=== PATIENT | female | born 1955 | race Caucasian/White ===

== ENCOUNTER → 2017-12-23 13:59 | Outpatient (CLI) | payer MEDICARE, OTHER, SELFPAY ==
--- NOTE | 2017-12-23 | DI.RAD.S_ITS ---
PROCEDURE: XR FOOT RT MIN 3V INDICATIONS: 62 year-old female with right foot pain. TECHNIQUE: 3 weight bearing views of the foot were acquired. COMPARISON: None. FINDINGS: Bones: No fractures or dislocations. There is normal overall bony alignment on weightbearing. Degenerative plantar calcaneal enthesophyte is present. No suspicious bony lesions. Soft tissues: No tibiotalar joint effusion. Achilles tendon appears normal. IMPRESSION: No radiographic explanation for right foot pain. Dictated by: Leonel Borden M.D. on 12/23/2017 at 15:11 Approved by: Leonel Borden M.D. on 12/23/2017 at 15:13
== END ==
PROVIDERS: PCP Internal Medicine; Visit Provider Internal Medicine
DX: M79.671 Pain in right foot (principal)
CPT/HCPCS: 73630

== ENCOUNTER → 2018-04-07 13:22 | Outpatient (CLI) | payer MEDICARE, OTHER, SELFPAY ==
--- NOTE | 2018-04-07 | DI.MRI.S_ITS ---
PROCEDURE: MR ANKLE RT WO CON INDICATIONS: RIGHT ANKLE PAIN TECHNIQUE: Noncontrast sagittal T1 spin echo and T2 fast spin echo with fat saturation, axial proton density fast spin echo and T2 fast spin echo with fat saturation, coronal T1 spin echo and T2 fast spin echo with fat saturation through the ankle/hindfoot. COMPARISON: [facility], CR, XR ANKLE 1 OR 2 VIEWS WEIGHT BEARING RIGHT, 03/23/2018, 8:37. FINDINGS: Image quality: Suboptimal due to scattered susceptibility artifact and field distortion from micro-metallic debris presumably postsurgical in nature Bones and joints: No bone marrow contusions or fractures. No hindfoot coalitions. There is mild tibiotalar degenerative spurring. No osteochondral injuries of the talar dome. No pathologic joint effusions. Medial structures: The posterior tibialis, flexor digitorum longus, and flexor hallucis longus tendons are intact. The posterior tibial neurovascular bundle appears normal within the tarsal tunnel, without extrinsic mass effect. The deep layer (anterior and posterior tibiotalar ligaments) and superficial layer (tibionavicular, tibiospring, and tibiocalcaneal ligaments) of the deltoid ligament appear normal. The spring ligament components (superomedial calcaneonavicular, medioplantar oblique calcaneonavicular, and inferoplantar longitudinal ligaments) are intact. Lateral structures: Lateral subcutaneous stranding and mild edema. The anterior talofibular, calcaneofibular, and posterior talofibular ligaments appear intact. More superiorly, the anterior and posterior tibiofibular ligaments appear intact, as is the intermalleolar ligament. The tibiofibular syndesmosis is normal in width at 2 mm or less. The peroneus longus appears intact. There is peroneus brevis tendinopathy with associated minimal tenosynovitis. Adjacent bony peroneal tubercle and retrotrochlear prominence are normal in size. The sinus tarsi demonstrates normal fatty signal, without edema, fibrosis, or cyst formation. Visualized sinus tarsi components (cervical ligament, interosseous talocalcaneal ligament, roots of the inferior extensor retinaculum) appear normal. The calcaneonavicular and calcaneocuboid components of the bifurcate ligament appear intact. The dorsal calcaneocuboid ligament appears intact. Anterior structures: The tibialis anterior, extensor hallucis longus, and extensor digitorum longus tendons appear intact. There is a small amount of fluid adjacent to the extensor digitorum longus tendon suggestive of tenosynovitis. Posterior and plantar structures: Achilles tendon is intact. Thickening of the medial band of plantar fascia with minimal adjacent soft tissue edema. IMPRESSION: Peroneus brevis tendinopathy and associated mild tenosynovitis. Lateral subcutaneous soft tissue swelling. Mild extensor digitorum longus tenosynovitis. Suboptimal evaluation due to scattered micro-metallic susceptibility artifact which partially obscures the medial hindfoot. Medial band plantar fasciitis at the calcaneal attachment. Mild tibiotalar joint degeneration. Dictated by: Wilfrido Larson M.D. on 04/07/2018 at 16:40 Approved by: Wilfrido Larson M.D. on 04/07/2018 at 16:49
== END ==
PROVIDERS: PCP Internal Medicine; Visit Provider Orthopaedic Surgery Foot and Ankle Surgery
DX: M25.571 Pain in right ankle and joints of right foot (principal); M65.871 Other synovitis and tenosynovitis, right ankle and foot; M72.2 Plantar fascial fibromatosis; M19.071 Primary osteoarthritis, right ankle and foot
CPT/HCPCS: 73721

== ENCOUNTER → 2020-11-10 08:12 | Outpatient (CLI) | payer MEDICARE, OTHER, SELFPAY ==
--- NOTE | 2020-11-10 08:16 | DI.MRI.S_ITS ---
PROCEDURE: MR LUMBAR SPINE WO CON INDICATIONS: Lesion of sciatic nerve, left lower limb TECHNIQUE: Noncontrast sagittal T1 spin echo and T2 fast echo, sagittal STIR, axial T1 and T2 fast spin echo through the lumbar spine. In cases with scoliosis, additional coronal T2 fast spin echo may be performed. COMPARISON: None. FINDINGS: Image quality: Excellent. Alignment and Curvature: There is normal bony alignment. Bone Marrow: Marrow is of normal overall signal. No acute vertebral body compression fractures. Spinal Cord: Conus medullaris terminates at the L1 level. Visualized cord demonstrates normal signal and size. Paraspinous Soft Tissues: No paravertebral masses. T12-L1: Diffuse disc bulge with no significant foraminal or central canal stenosis. L1-L2: No significant disc bulge. The foramina and central canal are patent. L2-L3: No significant disc bulge. The foramina and central canal are patent. L3-L4: No significant disc bulge. The foramina and central canal are patent. L4-L5: There is facet arthrosis and ligamentum flavum hypertrophy. No significant disc bulge. The foramina and central canal are patent. L5-S1: There is facet arthrosis and ligamentum flavum hypertrophy. No significant disc bulge. The foramina and central canal are patent. IMPRESSION: 1. Mild disc bulge at T12-L1 with no significant foraminal or central canal stenosis. 2. Facet arthrosis and ligamentum flavum hypertrophy at L4-5 and L5-S1. 3. Rightward rotoscoliosis of the thoracolumbar spine.. Dictated by: Antonino Thurston M.D. on 11/12/2020 at 8:36 Approved by: Antonino Thurston M.D. on 11/12/2020 at 8:56
== END ==
PROVIDERS: PCP Internal Medicine; Referring Provider Internal Medicine; Visit Provider Internal Medicine
DX: G57.02 Lesion of sciatic nerve, left lower limb (principal); M51.15 Intervertebral disc disorders with radiculopathy, thoracolumbar region; M47.26 Other spondylosis with radiculopathy, lumbar region; M47.27 Other spondylosis with radiculopathy, lumbosacral region; M41.85 Other forms of scoliosis, thoracolumbar region
CPT/HCPCS: 72148

== ENCOUNTER → 2021-10-07 09:25 | Outpatient (CLI) | payer MEDICARE, OTHER, SELFPAY ==
--- NOTE | 2021-10-07 09:27 | DI.RAD.S_ITS ---
PROCEDURE: XR LUMBAR SPINE MIN 4V INDICATIONS: LEFT LEG PAIN TECHNIQUE: Four views of the lumbar spine were acquired including bilateral obliques. COMPARISON: None. FINDINGS: Bones: Five nonrib-bearing vertebrae are present. Minor levoscoliosis. Normal AP alignment. No vertebral body compression fractures. No suspicious bony lesions. Soft tissues: Overlying bowel gas pattern is normal. No suspicious soft tissue calcifications. Surgical clips in the right upper quadrant. Mild abdominal aortic atherosclerotic calcification. Oblique images: No pars defects. Mild lower lumbar facet sclerosis. IMPRESSION: 1. Mild facet sclerosis and trace levoscoliosis. No other significant abnormality. Dictated by: Saima Dunn M.D. on 10/07/2021 at 10:18 Approved by: Saima Dunn M.D. on 10/07/2021 at 10:19
== END ==
PROVIDERS: PCP Internal Medicine; Referring Provider Physical Medicine & Rehabilitation; Visit Provider Physical Medicine & Rehabilitation
DX: M79.605 Pain in left leg (principal); M54.17 Radiculopathy, lumbosacral region; G95.0 Syringomyelia and syringobulbia; Z98.1 Arthrodesis status
CPT/HCPCS: 72110; 99215

== ENCOUNTER 2021-10-08 17:50 | Emergency (ER) | payer MEDICARE, OTHER, SELFPAY ==
[2021-10-08 17:52] VITALS: BP 193/84; PULSE 91; RESP 24; TEMP 36.4; O2SAT 98
--- NOTE | 2021-10-08 18:34 | ED_ITS ---
HPI - Headache <Raymond Patterson PA-C - Last Filed: 10/08/21 20:56> General Chief Complaint: Headache Stated Complaint: HEADACHE X3 DAYS RIGHT SIDE OF FACE FEELS WEAK Time Seen by Provider: 10/08/21 18:23 Mode of arrival: Ambulatory History of Present Illness HPI Narrative: 66-year-old female with past medical history hypertension, thoracic s yringomyelia presents to the ED with 3 days of intractable headache. Patient states that it has been more than 10 years since she had a headache and that this is unusual for her. Patient describes the headache to be right-sided which started from the top of her head descending down the back of her neck,, also extending down to the front of her face. Patient endorses some nausea but no vomiting. Patient endorses some flashing lights, blurry vision. Patient denies fever, chills, neck stiffness. Patient denies chest pain, endorses shortness of breath. Shortness of breath aggravated with lying down, better with sitting up straight or standing/walking. Patient also endorses bilateral leg swelling which started 3 days ago. Patient states she is currently being in the process of being worked up for some chest pain that she had some days ago. Patient was seen by her doctor this morning, given Imitrex for her headache. Patient took 1 dose of the Imitrex with no relief. Related Data Home Medications Medication Instructions Recorded Confirmed aripiprazole 30 mg tablet (Abilify) 60 mg PO DAILY 10/07/21 10/07/21 duloxetine 60 mg capsule,delayed 60 mg PO BID 10/07/21 10/07/21 release (Cymbalta) hydrocodone bitartrate 10 mg 10 mg PO Q12H 10/07/21 10/07/21 capsule, oral only, extended rel 12 hr levothyroxine 125 mcg tablet 125 mcg PO DAILY 10/07/21 10/07/21 (Synthroid) losartan 25 mg tablet 50 mg PO DAILY tab 10/07/21 10/07/21 metformin 500 mg tablet 500 mg PO DAILY 10/07/21 10/07/21 multivitamin (Daily Multi-Vitamin) 1 tab PO DAILY 10/07/21 10/07/21 oxycodone 10 mg tablet,extended mg PO 10/07/21 10/07/21 release,12 hr sitagliptin 100 mg tablet (Januvia) 100 mg PO DAILY 10/07/21 10/07/21 tizanidine 2 mg tablet 2 mg PO BID PRN tab 10/07/21 10/07/21 Previous Rx's Medication Instructions Recorded gabapentin 300 mg capsule 300 mg PO TID #90 cap 10/07/21 Allergies Allergy/AdvReac Type Severity Reaction Status Date / Time erythromycin base Allergy Severe Swelling Verified 10/07/21 11:19 of Lip/Tongue/Throat Penicillins Allergy Severe Anaphylaxis Verified 10/07/21 11:19 tetracycline Allergy Severe Anaphylaxis Verified 10/07/21 11:19 zoledronic acid Allergy Severe Anaphylaxis Verified 10/07/21 11:19 salicylic acid Allergy Intermediate Rash Verified 10/07/21 11:19 Review of Systems <Raymond Patterson PA-C - Last Filed: 10/08/21 20:56> Review of Systems ROS Unobtainable: All systems reviewed & are unremarkable except as noted in HPI and below Constitutional Constitutional: Denies chills, Denies fatigue, Denies fever(s), Denies frequent falls, Reports headache(s), Denies lethargy and Denies weakness Eyes Eyes: Reports blurry vision, Denies change in vision, Denies eye discharge, Denies irritation, Denies loss of vision and Reports seeing flashes ENT Ears, Nose, Mouth, and Throat: Denies change in voice, Denies dizziness, Reports headache(s), Denies neck pain, Denies sore throat and Denies throat swelling Cardiovascular Cardiovascular: Denies chest pain, Denies irregular heart rhythm, Denies lightheadedness, Denies palpitations, Reports dyspnea, Denies dyspnea on ex ertion and Denies orthopnea Respiratory Respiratory: Denies cough, Reports dyspnea, Denies dyspnea on exertion and Denies wheezing Gastrointestinal Gastrointestinal: Denies abdominal pain, Denies change in bowel habits, Denies diarrhea, Reports nausea and Denies vomiting Genitourinary Genitourinary: Denies hematuria, Denies flank pain, Denies urinary incontinence and Denies urinary urgency Musculoskeletal Musculoskeletal: Denies back pain, Denies muscle weakness, Denies neck pain, Denies numbness and Denies tingling Integumentary/Breasts Skin/Breast: Denies pruritus, Denies erythema, Denies rash and Denies wounds Neurologic Neurologic: Denies behavioral changes, Denies confusion, Denies dizziness, Denies frequent falls, Reports headache(s), Denies loss of vision, Denies numbness, Denies tingling and Denies weakness Psychiatric Psychiatric: Denies anxiety, Denies behavioral changes, Denies confusion, Denies depression, Denies homicidal ideation and Denies suicidal ideation Endocrine Endocrine: Denies fatigue, Denies flushing and Denies palpitations Hematologic/Lymphatic Hematologic/Lymphatic: Denies easy bruising Allergic/Immunologic Allergic/Immunologic: Denies urticaria, Denies throat swelling and Denies wheezing Patient History <Raymond Patterson PA-C - Last Filed: 10/08/21 20:56> Medical History Lumbosacral radiculopathy at L4 Post-traumatic syrinx Surgical History H/O neck surgery History of cholecystectomy History of fusion of cervical spine Family History Father Cancer Mother Heart disease Sister Heart disease Exam <Raymond Patterson PA-C - Last Filed: 10/08/21 20:56> Initial Vital Signs Initial Vital Signs: Vital Signs Temperature 97.5 F L 10/08/21 17:52 Pulse Rate 91 H 10/08/21 17:52 Respiratory Rate 24 10/08/21 17:52 Blood Pressure 193/84 H 10/08/21 17:52 Pulse Oximetry 98 10/08/21 17:52 Const General: cooperative, healthy appearing and comfortable [facility] Head: normal to inspection Ears: hearing grossly normal bilaterally Face and sinus: normal facial exam Eyes General: appearance normal, both eyes and all related structures Neck Neck: normal visual inspection Chest Chest: normal inspection of the chest Resp Effort & Inspection: normal respiratory effort Auscultation: clear to auscultation bilaterally Cardio Rate: regular rate Rhythm: regular rhythm Back/Spine/Pelvis Back: normal to inspection Other: No midline tenderness to palpation Skin General: no rashes or lesions noted Neuro General: patient alert, patient awake and patient oriented x3 Other: PERRLA, CN 1 through 12 bilaterally intact. Normal gait. Negative pronator drift, negative [id number], negative rapid alternating movements. Neurovascularly intact. Strength and sensation intact. Range of motion intact. Extrem Other: Bilateral leg swelling Psych Appearance: grossly normal Mental Status: mental status grossly normal <Aris Flood DO - Last Filed: 10/23/21 17:57> Initial Vital Signs Initial Vital Signs: Vital Signs Temperature 97.5 F L 10/08/21 17:52 Pulse Rate 91 H 10/08/21 17:52 Respiratory Rate 24 10/08/21 17:52 Blood Pressure 193/84 H 10/08/21 17:52 Pulse Oximetry 98 10/08/21 17:52 Course <Raymond Patterson PA-C - Last Filed: 10/08/21 20:56> Orders Ordered: Discontinued Medications Acetaminophen (Acetaminophen 325 Mg Tablet) 975 mg PO NOW ONE Stop: 10/08/21 18:55 Last Admin: 10/08/21 19:23 Dose: 975 mg Documented by: LUCY Diphenhydramine HCl (Diphenhydramine 50 Mg/Ml Vial) 50 mg IV NOW ONE Stop: 10/08/21 18:55 Last Admin: 10/08/21 19:22 Dose: 50 mg Documented by: LUCY Sodium Chloride (Normal Saline 0.9%) 1,000 mls @ 500 mls/hr IV BOLUS ONE Stop: 10/08/21 20:53 Last Infusion: 10/08/21 21:02 Dose: 0 mls/hr Documented by: Admin: 10/08/21 19:24 Dose: 500 mls/hr Documented by: LUCY Ketorolac Tromethamine (Ketorolac 30 Mg/Ml Vial) 15 mg IV NOW ONE Stop: 10/08/21 19:38 Last Admin: 10/08/21 19:59 Dose: 15 mg Documented by: CYNTHIA Metoclopramide HCl (Metoclopramide 10 Mg/2 Ml Inj) 10 mg IV NOW ONE Stop: 10/08/21 18:55 Last Admin: 10/08/21 19:22 Dose: 10 mg Documented by: LUCY Vital Signs Vital signs: Vital Signs - 8 hr 10/08/21 17:52 Temperature 97.5 F L Pulse Rate 91 H Respiratory Rate 24 Blood Pressure 193/84 H Pulse Oximetry 98 <Aris Flood DO - Last Filed: 10/23/21 17:57> Orders Ordered: Discontinued Medications Acetaminophen (Acetaminophen 325 Mg Tablet) 975 mg PO NOW ONE Stop: 10/08/21 18:55 Last Admin: 10/08/21 19:23 Dose: 975 mg Documented by: LUCY Diphenhydramine HCl (Diphenhydramine 50 Mg/Ml Vial) 50 mg IV NOW ONE Stop: 10/08/21 18:55 Last Admin: 10/08/21 19:22 Dose: 50 mg Documented by: LUCY Sodium Chloride (Normal Saline 0.9%) 1,000 mls @ 500 mls/hr IV BOLUS ONE Stop: 10/08/21 20:53 Last Infusion: 10/08/21 21:02 Dose: 0 mls/hr Documented by: Admin: 10/08/21 19:24 Dose: 500 mls/hr Documented by: LUCY Ketorolac Tromethamine (Ketorolac 30 Mg/Ml Vial) 15 mg IV NOW ONE Stop: 10/08/21 19:38 Last Admin: 10/08/21 19:59 Dose: 15 mg Documented by: CYNTHIA Metoclopramide HCl (Metoclopramide 10 Mg/2 Ml Inj) 10 mg IV NOW ONE Stop: 10/08/21 18:55 Last Admin: 10/08/21 19:22 Dose: 10 mg Documented by: LUCY Vital Signs Vital signs: Vital Signs - 8 hr 10/08/21 17:52 Temperature 97.5 F L Pulse Rate 91 H Respiratory Rate 24 Blood Pressure 193/84 H Pulse Oximetry 98 MDM - Headache <Raymond Patterson PA-C - Last Filed: 10/08/21 20:56> Medical Records Attestation: I reviewed the patient's medical records. Lab Data Lab results narrative: Leukocytosis of 14.2. Labs otherwise unremarkable. UA negative for UTI. Result diagrams: 10/08/21 19:15 10/08/21 19:15 Labs: Lab Results 10/08/21 10/08/21 Range/Units 19:15 19:15 WBC 14.2 H (4.5-11.0) X10^3/uL RBC 4.65 (4.0-5.2) X10^6/uL Hgb 13.4 (12.0-16.0) g/dL Hct 39.8 (36-46) % MCV 85.7 (80-100) fL MCH 28.9 (26-34) PG MCHC 33.7 (30-36) % RDW 12.8 (11.6-14.8) % Plt Count 308 (150-400) X10^3/uL Neut % (Auto) 71.5 (50-75) % Lymph % (Auto) 20.9 L (25-40) % Rush % (Auto) 4.0 (3-14) % Eos % (Auto) 3.1 (2-4) % Baso % (Auto) 0.5 (0-2) % Neut # (Auto) 39407 H (2816-8291) /uL Lymph # (Auto) 3000 (7522-2110) /uL Rush # (Auto) 600 (0-900) /uL Eos # (Auto) 400 (0-450) /uL Baso # (Auto) 100 (0-100) /uL Sodium 138 (137-145) mmol/L Potassium 4.1 (3.4-5.1) mmol/L Chloride 100 (98-107) mmol/L Carbon Dioxide 30 (22-32) mmol/L BUN 11 (7-17) mg/dL Creatinine 0.82 (0.52-1.04) mg/dL Estimated GFR > 60.0 (>60) mL/min BUN/Creatinine Ratio 13.4 (6-22) Glucose 190 H (80-110) mg/dL Calcium 9.8 (8.4-10.2) mg/dL Total Bilirubin 0.5 (0.2-1.3) mg/dL AST 32 (14-36) IU/L ALT 27 (<35) IU/L Alkaline Phosphatase 91 (38-126) U/L Troponin I 0.020 (0.01-0.034) ng/mL NT-Pro-B Natriuret Pep 26 (<125) pg/mL Total Protein 8.0 (6.3-8.2) g/dL Albumin 4.7 (3.5-5.0) g/dL Globulin 3.3 (1.7-4.1) g/dL Albumin/Globulin Ratio 1.4 (1.0-2.8) Urine Dip Bedside Urine Glucose Negative Bedside Urine Bilirubin - Negative Bedside Urine Ketone - Negative Urine Specific [place] 1.015 Bedside Urine Occult Blood - Negative Bedside Urine pH 6.0 Bedside Urine Protein - Negative Bedside Urine Urobilinogen - Negative Bedside Urine Nitrite - Negative Bedside Urine Leukocytes - Negative Esterase Imaging Data CT scan - head: Radiologist's Impression: PROCEDURE:? CT HEAD/BRAIN WO CON ? INDICATIONS:? New Headache ? TECHNIQUE:? Noncontrast 4.5 mm thick angled axial sections acquired from the foramen magnum to the vertex, with coronal and sagittal reformats.? For radiation dose reduction, the following was used:? automated exposure control, adjustment of mA and/or kV according to patient size.? ? COMPARISON:? None. ? FINDINGS:? Image quality:? Excellent.? ? CSF spaces:? Basal cisterns are patent.? No extra-axial fluid collections.? Ventricles are normal in size and shape.? ? Brain:? Mild atrophy and multifocal white matter chronic ischemic change noted.? No intracranial hemorrhage or mass effect. ? Skull and face:? Calvarium and visualized facial bones are intact, without suspicious lesions.? Incidental hyperostosis frontalis interna noted. ? Sinuses:? Visualized sinuses and mastoids are clear.? ? IMPRESSION:? ? Atrophy and mild chronic ischemic change without intracranial hemorrhage or mass effect. ? ? ? Approved by: Mario Randle M.D. on 10/08/2021 at 18:09? ECG Data Interpretation: Normal sinus rhythm, no acute ST-T changes, no axis deviation. [facility] Narrative Medical decision making narrative: 66-year-old female with past medical history hypertension, thoracic syringomyelia presents to the ED with 3 days of intractable headache. Concern for intracranial mass versus intracranial bleed versus primary headache versus new onset heart failure versus ACS. Will order labs, EKG, chest x-ray, troponin, BNP, head CT. Will treat headache with Reglan, Tylenol, Benadryl, IV fluids. Will reassess. Labs unremarkable other than leukocytosis of 14.2. No source of infection identified. Chest x-ray, UA negative. EKG, troponin, BNP normal. CT head with no acute findings. Patient responded well to treatment with pain medications. Patient states her headache and vision symptoms have resolved. ED return preca utions discussed with patient. Patient verbalized understanding. <Aris Flood, - Last Filed: 10/23/21 17:57> Lab Data Labs: Lab Results 10/08/21 10/08/21 Range/Units 19:15 19:15 WBC 14.2 H (4.5-11.0) X10^3/uL RBC 4.65 (4.0-5.2) X10^6/uL Hgb 13.4 (12.0-16.0) g/dL Hct 39.8 (36-46) % MCV 85.7 (80-100) fL MCH 28.9 (26-34) PG MCHC 33.7 (30-36) % RDW 12.8 (11.6-14.8) % Plt Count 308 (150-400) X10^3/uL Neut % (Auto) 71.5 (50-75) % Lymph % (Auto) 20.9 L (25-40) % Rush % (Auto) 4.0 (3-14) % Eos % (Auto) 3.1 (2-4) % Baso % (Auto) 0.5 (0-2) % Neut # (Auto) 07418 H (1499-3756) /uL Lymph # (Auto) 3000 (5277-9538) /uL Rush # (Auto) 600 (0-900) /uL Eos # (Auto) 400 (0-450) /uL Baso # (Auto) 100 (0-100) /uL Sodium 138 (137-145) mmol/L Potassium 4.1 (3.4-5.1) mmol/L Chloride 100 (98-107) mmol/L Carbon Dioxide 30 (22-32) mmol/L BUN 11 (7-17) mg/dL Creatinine 0.82 (0.52-1.04) mg/dL Estimated GFR > 60.0 (>60) mL/min BUN/Creatinine Ratio 13.4 (6-22) Glucose 190 H (80-110) mg/dL Calcium 9.8 (8.4-10.2) mg/dL Total Bilirubin 0.5 (0.2-1.3) mg/dL AST 32 (14-36) IU/L ALT 27 (<35) IU/L Alkaline Phosphatase 91 (38-126) U/L Troponin I 0.020 (0.01-0.034) ng/mL NT-Pro-B Natriuret Pep 26 (<125) pg/mL Total Protein 8.0 (6.3-8.2) g/dL Albumin 4.7 (3.5-5.0) g/dL Globulin 3.3 (1.7-4.1) g/dL Albumin/Globulin Ratio 1.4 (1.0-2.8) Urine Dip Bedside Urine Glucose Negative Bedside Urine Bilirubin - Negative Bedside Urine Ketone - Negative Urine Specific [place] 1.015 Bedside Urine Occult Blood - Negative Bedside Urine pH 6.0 Bedside Urine Protein - Negative Bedside Urine Urobilinogen - Negative Bedside Urine Nitrite - Negative Bedside Urine Leukocytes - Negative Esterase Discharge Plan Departure Patient Disposition: Home Clinical Impression: Headache Instructions: DI for Headache Activity Restrictions/Additional Instructions: You were evaluated in the ED today for a headache. Your CT scan, labs, urinal ysis were normal. Your symptoms responded well to the pain medications. Return to the ED if you have worsening symptoms, nausea, vomiting. Prescriptions: No Action levothyroxine [Synthroid] 125 mcg tablet 125 mcg PO DAILY 0RF Januvia 100 mg tablet 100 mg PO DAILY 0RF aripiprazole [Abilify] 30 mg tablet 60 mg PO DAILY 0RF duloxetine [Cymbalta] 60 mg capsule,delayed release(DR/EC) 60 mg PO BID 0RF metformin 500 mg tablet 500 mg PO DAILY 0RF multivitamin [Daily Multi-Vitamin] Tablet 1 tab PO DAILY 0RF oxycodone 10 mg tablet extended release 12 hr PO 0RF hydrocodone bitartrate 10 mg capsule, oral only, ER 12hr 10 mg PO Q12H 0RF losartan 25 mg tablet 50 mg PO DAILY 0RF tizanidine 2 mg tablet 2 mg PO BID PRN (Reason: muscle spasticity) 0RF gabapentin 300 mg capsule 300 mg PO TID Qty: 90 1RF Referrals: Stuart Lutz MD [Primary Care Provider] - <Aris Flood, - Last Filed: 10/23/21 17:57> Cosign ED Attending Cosfarhanature Attestation: Dr Flood Co-Sign Statement: I was available for consultation during this patient's emergency department visit. This chart is signed by myself for admin istrative purposes only. I did not have direct contact with this patient during this visit. They were seen independently by the APC.
--- NOTE | 2021-10-08 18:47 | DI.CT.S_ITS ---
PROCEDURE: CT HEAD/BRAIN WO CON INDICATIONS: New Headache TECHNIQUE: Noncontrast 4.5 mm thick angled axial sections acquired from the foramen magnum to the vertex, with coronal and sagittal reformats. For radiation dose reduction, the following was used: automated exposure control, adjustment of mA and/or kV according to patient size. COMPARISON: None. FINDINGS: Image quality: Excellent. CSF spaces: Basal cisterns are patent. No extra-axial fluid collections. Ventricles are normal in size and shape. Brain: Mild atrophy and multifocal white matter chronic ischemic change noted. No intracranial hemorrhage or mass effect. Skull and face: Calvarium and visualized facial bones are intact, without suspicious lesions. Incidental hyperostosis frontalis interna noted. Sinuses: Visualized sinuses and mastoids are clear. IMPRESSION: Atrophy and mild chronic ischemic change without intracranial hemorrhage or mass effect. Approved by: Mario Randle M.D. on 10/08/2021 at 18:09
--- NOTE | 2021-10-08 19:11 | DI.RAD.S_ITS ---
PROCEDURE: XR CHEST 2V INDICATIONS: Short of breath TECHNIQUE: 2 views of the chest were acquired. COMPARISON: [facility], CT, CT HEAD/BRAIN WO CON, 10/08/2021, 18:53. FINDINGS: Surgical changes and devices: Cholecystectomy clips are seen. Lungs and pleura: An incomplete inspiratory result is noted, causing a crowded appearance to the lung markings. No focal infiltrates are seen. No pneumothorax or significant pleural effusions are seen. Mediastinum: Mediastinal contours are normal. Heart size is normal. Bones and chest wall: No suspicious bony abnormalities. Age-appropriate bony degenerative changes are seen. Mild dextroconvex scoliotic curvature is seen. Soft tissues appear unremarkable. IMPRESSION: Limited chest plain films, without an acute abnormality identified. Dictated by: Denver Dhillon M.D. on 10/08/2021 at 19:04 Approved by: Denver Dhillon M.D. on 10/08/2021 at 19:04
[2021-10-08] MEDS: METOCLOPRAMIDE 10 MG/2 ML INJ IV (19:22)
[2021-10-08] MEDS: diphenhydrAMINE 50 MG/ML VIAL IV (19:22)
[2021-10-08] MEDS: ACETAMINOPHEN 325 MG TABLET 975 MG PO (19:23)
[2021-10-08] MEDS: SODIUM CHLORIDE 0.9% 1,000 ML 500 ML IV (19:24)
[2021-10-08] MEDS: KETOROLAC 30 MG/ML VIAL 15 MG IV (19:59)
[2021-10-08 20:00] LABS: Add Manual Diff / Slide Review NO; Basophils Absolute Auto 100 /uL (0-100); Basophils Percent Auto 0.5 % (0-2); Eosinophils Absolute Auto 400 /uL (0-450); Eosinophils Percent Auto 3.1 % (2-4); Hematocrit 39.8 % (36-46); Hemoglobin 13.4 g/dL (12.0-16.0); Lymphocytes Absolute Auto 3000 /uL (1100-4500); Lymphocytes Percent Auto 20.9 % (25-40); Mean Corpuscular HGB Conc 33.7 % (30-36); Mean Corpuscular Hemoglobin 28.9 PG (26-34); Mean Corpuscular Volume 85.7 fL (80-100); Monocytes Absolute Auto 600 /uL (0-900); Neutrophils Absolute Auto 10100 /uL (1500-7000); Neutrophils Percent Auto 71.5 % (50-75); Platelet Count 308 X10^3/uL (150-400); Red Blood Cell Count 4.65 X10^6/uL (4.0-5.2); Red Cell Distribution Width 12.8 % (11.6-14.8); White Blood Cell Count 14.2 X10^3/uL (4.5-11.0)
[2021-10-08 20:27] LABS: Alanine Aminotransferase 27 IU/L (<35); Albumin 4.7 g/dL (3.5-5.0); Albumin Globulin Ratio 1.4 (1.0-2.8); Alkaline Phosphatase 91 U/L (38-126); Aspartate Aminotransferase 32 IU/L (14-36); BUN Creatinine Ratio 13.4 (6-22); Bilirubin Total 0.5 mg/dL (0.2-1.3); Blood Urea Nitrogen 11 mg/dL (7-17); Calcium 9.8 mg/dL (8.4-10.2); Carbon Dioxide 30 mmol/L (22-32); Chloride 100 mmol/L (98-107); Estimated Glomerular Filt Rate > 60.0 mL/min (>60); Globulin 3.3 g/dL (1.7-4.1); Glucose 190 mg/dL (80-110); HEMOLYSIS < 15 (0-50); Potassium 4.1 mmol/L (3.4-5.1); Sodium 138 mmol/L (137-145)
[2021-10-08 20:37] LABS: NT-proBNP (BNP-Adult 18+) 26 pg/mL (<125)
[2021-10-08 21:00] VITALS: BP 188/84; PULSE 84; RESP 18; O2SAT 100
--- NOTE | 2021-10-08 21:04 | PC.NURSE ---
c/o pain to the right side of her head
== END 2021-10-08 21:06 | disposition home or self-care (01) ==
PROVIDERS: Emergency Provider Student in an Organized Health Care Education/Training Program; PCP Internal Medicine
DX: R51.9 Headache, unspecified (principal)
CPT/HCPCS: 36415; 70450; 71046; 80053; 81003; 83880; 84484; 85025; 93005; 96361; 96374; 96375; 99284; J1200; J1885; J2765

== ENCOUNTER → 2021-12-25 07:42 | Outpatient (CLI) | payer MEDICARE, OTHER, SELFPAY ==
--- NOTE | 2021-12-25 07:44 | DI.RAD.S_ITS ---
PROCEDURE: XR THORACIC SPINE 3V INDICATIONS: THORACIC PAIN TECHNIQUE: 3 views of the thoracic spine were acquired. COMPARISON: None. FINDINGS: Bones: No fractures or dislocations. No suspicious bony lesions. 12 pairs of ribs are noted, and appear intact where visualized. Convex right lumbar spine scoliosis. Moderate degenerative disc changes noted in the midthoracic spine. Mild degenerative disc changes noted in the mid and lower thoracic spine. Mild facet hypertrophy noted throughout the thoracic spine. Soft tissues: No paravertebral stripe thickening. Cholecystectomy clips IMPRESSION: 1. Multilevel degenerative disc disease. 2. Multilevel facet arthropathy. 3. No fracture. No acute osseous lesion. If symptoms and/or clinical suspicion for pathology persists, evaluation with MRI should be considered for further assessment. 4. Convex right scoliosis. Dictated by: Huong Liao MD, PhD on 12/25/2021 at 12:56 Approved by: Huong Liao MD, PhD on 12/25/2021 at 12:58
== END ==
PROVIDERS: PCP Internal Medicine; Referring Provider Physical Medicine & Rehabilitation; Visit Provider Physical Medicine & Rehabilitation
DX: M51.34 Other intervertebral disc degeneration, thoracic region (principal); M47.814 Spondylosis without myelopathy or radiculopathy, thoracic region; M41.84 Other forms of scoliosis, thoracic region; M54.17 Radiculopathy, lumbosacral region; G95.0 Syringomyelia and syringobulbia; Z98.1 Arthrodesis status
CPT/HCPCS: 72072; 99214

== ENCOUNTER → 2021-12-30 10:15 | Outpatient (CLI) | payer MEDICARE, OTHER, SELFPAY ==
[2021-12-30 12:04] LABS: COVID19 -Nasal RAPID Negative (Negative)
== END ==
PROVIDERS: PCP Internal Medicine; Visit Provider Physical Medicine & Rehabilitation
DX: Z20.822 Contact with and (suspected) exposure to COVID-19 (principal)
CPT/HCPCS: 87635; C9803

== ENCOUNTER 2021-12-31 09:24 | Outpatient (CLI) | payer MEDICARE, OTHER, SELFPAY ==
[2021-12-31] VITALS (9 sets, daily range): BP systolic 102–149; BP diastolic 50–83; PULSE 58–66; RESP 12–17; TEMP 36.3; O2SAT 96–100
--- NOTE | 2021-12-31 09:25 | DI.RAD.S_ITS ---
PROCEDURE: PAIN L/S TRANSFORAM INJECT ZAFAR COMPARISON: [facility], CR, XR LUMBAR SPINE MIN 4V, 10/07/2021, 9:17. INDICATIONS: SPONDYLOSIS FINDINGS: Fluoroscopic spot filming was performed to verify placement of spinal needles on both sides at the L4-L5 levels, as labeled on the films. Appropriate location of the needle tips was confirmed by injection of iodinated contrast. IMPRESSION: Intraprocedural examination demonstrating appropriate positions of the needles. Dictated by: Denver Dhillon M.D. on 12/31/2021 at 11:47 Approved by: Denver Dhillon M.D. on 12/31/2021 at 11:47
[2021-12-31] MEDS: MIDAZOLAM 2 MG/2 ML VIAL IV (11:44)
[2021-12-31] MEDS: BUPIVACAINE 0.25% (PF) VIAL 2 ML INJ (11:48)
[2021-12-31] MEDS: IOPAMIDOL 15 ML VIAL 3 ML INJ (11:48)
[2021-12-31] MEDS: BETAMETHASONE 30 MG/5 ML MDV 12 MG INJ (11:49)
[2021-12-31] MEDS: DEXAMETHASONE 10 MG/ML VIAL 20 MG INJ (11:49)
--- NOTE | 2021-12-31 12:04 | PM.PROC.IR.1 ---
Date/Time/Diagnoses Date of procedure: 12/31/21 Time of procedure: 12:04 Pre-procedure diagnosis: 1. FORAMINAL STENOSIS WITH LE SYMPTOMS Procedure Notes Procedure: 1. FLUOROSCOPICALLY GUIDED CONTRAST CONTROLLED TRANSFORAMINAL EPIDURAL STEROID INJECTION - BILATERAL L4/5 TFESI Indications: Barbara is referred by Dr. Lutz for treatment of Foraminal Stenosis with bilateral LE Symptoms Physician: Mark Lindsey Total Fluoroscopy time (seconds): 25 Total sedation minutes: 16 Complications: none Procedure in detail & Post-procedure care: FINDINGS Foraminal Nerve Root Compression secondary to disc disease and facet hypertrophy DESCRIPTION OF PROCEDURE Following review of allergy and review of potential side effects and complications, including, but not necessarily limited to, infection, allergic reaction, local tissue breakdown, stroke, temporary or permanent nerve injury, paralysis, and possible , the patient indicated that the patient understood and agreed to proceed. An informed consent document was signed by the patient, witnessed by a nurse, and placed in the patient's chart. Additionally, other treatment options including medications, modalities, and physical therapy were reviewed with the patient. After review of previous anaesthesic history and IV conscious sedation the patient was deemed safe to proceed with today?s procedure with IV conscious sedation as ASA class II designation. Safety time-out was performed to confirm patient ID, procedure to be performed and site of procedure. IV sedation was accomplished with a combination of 3mg of Versed was administered by the RN after DO order, titrated to patient comfort during the course of the procedure while the patient remained responsive to all verbal commands In the prone position following sterile prep and drape of the lumbar region, the right L4/5 posterior neuroforamen was identified fluoroscopically. The skin was anesthetized via a 25-gauge 1.5-inch needle with 1% lidocaine solution. At this point, a 25-gauge 3.5-inch spinal needle was atraumatically introduced and advanced under fluoroscopic guidance through the posterior right L4/5 neuroforamen to approximately the anterior aspect of the canal. Depth was confirmed on lateral view. Following negative aspiration, injection of approximately 1.5cc of Isovue 200 under live fluoroscopy in the AP view confirmed excellent flow along the nerve root, into the epidural space without vascular or intrathecal uptake observed Radiological data, including multiple fluoroscopic views of the lumbosacral spine, reveal a spinal needle at the right L4/5 posterior neuroforamen. Subsequent views show flow of contrast material flowing superiorly and inferiorly along the nerve root confirming epidural flow. Subsequently, a test dose of 1.5cc of 1% lidocaine solution was administered and patient was observed for two minutes for signs or symptoms of complications, including abdominal pain, shortness of breath, bilateral upper or lower extremity weakness, nausea and vomiting, prior to steroid injection. At this point, a total of 3cc or 20mg of dexamethasone and 6mg betamethasone was injected without incident. Attention was then refocused to the left L4/5 level where the identical procedure was replicated. The procedure tolerated the procedure well without signs or symptoms of complications prior to transfer to the recovery area continued monitoring without incident. The patient was then transferred to the recovery area where they were observed for an appropriate time after the injection. The patient reported a VAS score of 7 prior to the procedure and a post-procedure VAS of 0. POST OP INSTRUCTIONS The patient was provided a Pain Log to continue to record their response to the target-specific procedure prior to follow-up visit with their referring physician. Additionally, specific post-injection care instructions and a contact number to our office were provided if concerns arise regarding possible complications associated with the procedure are suspected.
== END 2021-12-31 12:28 | disposition home or self-care (01) ==
LOC: RAD 09:25
PROVIDERS: PCP Internal Medicine; Referring Provider Physical Medicine & Rehabilitation; Visit Provider Physical Medicine & Rehabilitation
DX: M48.061 Spinal stenosis, lumbar region without neurogenic claudication (principal); M51.16 Intervertebral disc disorders with radiculopathy, lumbar region
CPT/HCPCS: 64483; 99152; J0702; J1100; J2250

== ENCOUNTER 2022-05-13 09:42 | Outpatient (CLI) | payer MEDICARE, OTHER, SELFPAY ==
[2022-05-13] VITALS (8 sets, daily range): BP systolic 132–158; BP diastolic 64–86; PULSE 63–70; RESP 16–20; O2SAT 96–100
--- NOTE | 2022-05-13 09:45 | DI.RAD.S_ITS ---
PROCEDURE: PAIN L/S FACET INJ/BLK 1ST ZAFAR COMPARISON: [facility], , PAIN L/S TRANSFORAM INJECT ZAFAR, 12/31/2021, 11:48. INDICATIONS: SPONDYLOSIS FINDINGS: Fluoroscopic spot filming was performed to verify placement of spinal needles on both sides at the L4-L5 and L5-S1 levels, as labeled on the films. Appropriate location of the needle tips was confirmed by injection of iodinated contrast. IMPRESSION: Intraprocedural examination demonstrating appropriate positions of the needles. Dictated by: Denver Dhillon M.D. on 05/13/2022 at 11:12 Approved by: Denver Dhillon M.D. on 05/13/2022 at 11:12
[2022-05-13] MEDS: MIDAZOLAM 2 MG/2 ML VIAL IV (11:06)
[2022-05-13] MEDS: IOPAMIDOL 15 ML VIAL 3 ML INJ (11:09)
[2022-05-13] MEDS: LIDOCAINE 1% 20 ML 5 ML INJ (11:09)
[2022-05-13] MEDS: BETAMETHASONE 30 MG/5 ML MDV 12 MG INJ (11:10)
[2022-05-13] MEDS: BUPIVACAINE 0.5% (PF) VIAL 5 ML INJ (11:10)
--- NOTE | 2022-05-13 11:18 | P.PCN_ITS ---
Date/Time/Diagnoses Date of procedure: 05/13/22 Time of procedure: 11:18 Pre-procedure diagnosis: 1. FACET ARTHROPATHY 2. AXIAL LBP 3. MULTILEVEL DDD Post-procedure diagnosis: same Procedure Notes Procedure: 1. FLUOROSCOPICALLY GUIDED CONTRAST CONTROLLED FACET JOINT INJECTIONS BILATERAL L4/5, L5/S1 Indications: Barbara is referred by Dr. Lutz for treatment of Axial LBP Physician: Mark Lindsey Total Fluoroscopy time (seconds): 7 Total sedation minutes: 9 Complications: none Procedure in detail & Post-procedure care: FINDINGS Multilevel Facet Arthropathy with Clinically significant axial LBP DESCRIPTION OF PROCEDURE Fluoroscopically guided, contrast-controlled bilateral L4/5, L5/S1 facet joint injections. Following review of allergy and review of potential side effects and complications, including, but not necessarily limited to, infection, allergic reaction, local tissue breakdown, stroke, temporary or permanent nerve injury, paralysis, and possible , the patient indicated that the patient understood and agreed to proceed. An informed consent document was signed by the patient, witnessed by a nurse, and placed in the patient's chart. Additionally, other treatment options including medications, modalities, and physical therapy were reviewed with the patient. After review of previous anaesthesic history and IV conscious sedation the patient was deemed safe to proceed with today?s procedure with IV conscious sedation as ASA class II designation. Safety time-out was performed to confirm patient ID, procedure to be performed and site of procedure. IV sedation was accomplished with a combination of 2mg of Versed was administered by the RN after DO order, titrated to patient comfort during the course of the procedure while the patient remained responsive to all verbal commands In the prone position, following sterile prep and drape of the lumbar region, the posterior aspect of the L4/5, L5/S1 facet joints were identified fluoroscopically. The skin was anesthetized via a 25-gauge 1.5inch needle with 1% lidocaine solution into the corresponding facet joints. At this point, a 22- gauge 5-inch spinal needle was atraumatically introduced and advanced under fluoroscopic guidance into the corresponding facet joints. Following negative aspiration, injections of approximately 0.2cc of Isovue 200 confirmed interarticular placement without vascular uptake. The identical procedure was then performed at the L4/5, L5/S1 facet joints on the left. Radiological data, including multiple fluoroscopic views of the lumbosacral spine, reveal a spinal needle at the L4/5, L5/S1 facet joints bilaterally. Subsequent views show flow of contrast material both superiorly and inferiorly within the joint space without vascular or intrathecal uptake. At this point, a total of 0.5cc including a mixture of 0.25cc Marcaine and 0.25cc betamethasone was injected without complication into each of the corresponding facet joints. The patient tolerated the procedure well without signs or symptoms of complications prior to transfer to the recovery area continued monitoring without incident. The patient was then transferred to the recovery area where they were observed for an appropriate period of time after the injection. The patient reported a VAS score of 7 prior to the procedure and a post- procedure VAS of 0. POST OP INSTRUCTIONS The patient was provided a Pain Log to continue to record their response to the target-specific procedure prior to follow-up visit with their referring physician. Additionally, specific post-injection care instructions and a contact number to our office were provided if concerns arise regarding possible complications associated with the procedure are suspected.
== END 2022-05-13 11:38 | disposition home or self-care (01) ==
PROVIDERS: PCP Internal Medicine; Referring Provider Physical Medicine & Rehabilitation; Visit Provider Physical Medicine & Rehabilitation
DX: M47.816 Spondylosis without myelopathy or radiculopathy, lumbar region (principal); M47.817 Spondylosis without myelopathy or radiculopathy, lumbosacral region; M51.36 Other intervertebral disc degeneration, lumbar region; M51.37 Other intervertebral disc degeneration, lumbosacral region
CPT/HCPCS: 64493; 64494; J0702; J2250

== ENCOUNTER 2022-06-06 11:34 | Emergency (ER) | payer MEDICARE, OTHER, SELFPAY ==
[2022-06-06 11:45] VITALS: BP 140/62; PULSE 88; RESP 20; TEMP 36.4; O2SAT 98
--- NOTE | 2022-06-06 14:57 | DI.RAD.S_ITS ---
PROCEDURE: XR ANKLE LT MIN 3V INDICATIONS: medial pain s/p fall, sprain? TECHNIQUE: Three views of the ankle were acquired. COMPARISON: None. FINDINGS: Bones: No fractures or dislocations. Ankle mortise is normally aligned. No suspicious bony lesions. Prominent plantar calcaneal spur. Soft tissues: No tibiotalar joint effusion. Achilles tendon appears normal. IMPRESSION: Intact left ankle. Dictated by: Saima Dunn M.D. on 06/06/2022 at 16:02 Approved by: Saima Dunn M.D. on 06/06/2022 at 16:02
--- NOTE | 2022-06-06 14:57 | DI.RAD.S_ITS ---
PROCEDURE: XR ANKLE RT MIN 3V INDICATIONS: medial pain s/p fall, sprain? TECHNIQUE: Three views of the ankle were acquired. COMPARISON: [facility], CR, XR ANKLE 1 OR 2 VIEWS WEIGHT BEARING RIGHT, 03/23/2018, 8:37. FINDINGS: Bones: Chronic cortical irregularity of the distal tibia and fibula. Mild anterior tibiotalar spurring and spurring at both malleoli. There may be a tiny avulsion fracture along the medial malleolus. The mortise with is not well assessed given current positioning. A prominent calcaneal spur is present, symmetric with the contralateral side. Soft tissues: No tibiotalar joint effusion. Achilles tendon appears normal. Moderate medial soft tissue swelling. IMPRESSION: 1. Moderate medial soft tissue swelling with questionable nondisplaced avulsion at the tip of the medial malleolus. 2. Probable remote injury and healing deformities of the distal fibula and tibia. Dictated by: Saima Dunn M.D. on 06/06/2022 at 16:03 Approved by: Saima Dunn M.D. on 06/06/2022 at 16:09
--- NOTE | 2022-06-06 14:58 | ED_ITS ---
HPI - Fall <Sandra DESIREE LegerP - Last Filed: 06/06/22 16:43> General Chief Complaint: Fall Stated Complaint: fell thursday both legs & ankles are swollen Time Seen by Provider: 06/06/22 14:35 Source: patient Mode of arrival: Ambulatory History of Present Illness HPI Narrative: This is a 67-year-old female presents to the emergency department after she had a mechanical fall 5 days ago when her legs when out. 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 She denies any recent illness. Complains of pain to the medial aspect of her bilateral ankles, some mild swelling, states that she is able to bear weight on them bilaterally, denies any open wound. Denies any knee pain, denies any hip pain, states that she has some soft tissue bruising to the right lateral distal thigh, denies any open wound there and has full range of motion of her right hip. Patient states that she took pain medication and her pain is under control right now and she is able to ambulate without weakness. Related Data Home Medications Medication Instructions Recorded Confirmed duloxetine 60 mg capsule,delayed 60 mg PO BID 10/07/21 04/30/22 release (Cymbalta) levothyroxine 125 mcg tablet 125 mcg PO DAILY 10/07/21 04/30/22 (Synthroid) multivitamin (Daily Multi-Vitamin 1 tab PO DAILY 10/07/21 04/30/22 tablet) oxycodone 10 mg tablet,extended mg PO 10/07/21 04/30/22 release,12 hr tizanidine 2 mg tablet 2 mg PO BID PRN muscle spasticity 10/07/21 04/30/22 aripiprazole 10 mg tablet 30 mg PO DAILY 12/25/21 04/30/22 hydrocodone 10 mg-acetaminophen 1 tab PO DAILY 12/25/21 04/30/22 325 mg tablet levothyroxine 125 mcg tablet 125 mcg PO DAILY 12/25/21 04/30/22 (Synthroid) losartan 50 mg tablet 50 mg PO DAILY 12/25/21 04/30/22 methocarbamol 750 mg tablet 750 mg PO .PRN 12/25/21 04/30/22 metoprolol succinate 50 mg tab PO 12/25/21 04/30/22 tablet,extended release 24 hr sumatriptan succinate 50 mg tablet ea PO 12/25/21 04/30/22 hydrochlorothiazide 25 mg tablet 25 mg PO DAILY 04/30/22 04/30/22 metformin 500 mg tablet,extended 500 mg PO DAILY 04/30/22 04/30/22 release 24 hr oxycodone 10 mg tablet,crush 10 mg PO Q12H 04/30/22 04/30/22 resistant,extended release 12 hr sitagliptin 50 mg tablet (Januvia) 50 mg PO DAILY 04/30/22 04/30/22 Previous Rx's Medication Instructions Recorded gabapentin 600 mg tablet 600 mg PO .COMPLEX #90 tabs 04/30/22 Allergies Allergy/AdvReac Type Severity Reaction Status Date / Time erythromycin base Allergy Severe Swelling Verified 04/30/22 09:56 of Lip/Tongue/Throat Penicillins Allergy Severe Anaphylaxis Verified 04/30/22 09:56 tetracycline Allergy Severe Anaphylaxis Verified 04/30/22 09:56 zoledronic acid Allergy Severe Anaphylaxis Verified 04/30/22 09:56 salicylic acid Allergy Intermediate Rash Verified 04/30/22 09:56 Review of Systems <DEA Espinosa - Last Filed: 06/06/22 16:43> Review of Systems Narrative: Review of systems is negative for acute abnormalities unless otherwise noted in HPI Patient History <DEA Espinosa - Last Filed: 06/06/22 16:43> Medical History Depression Diabetes Facet arthropathy, lumbar Hypothyroidism Lumbosacral radiculopathy at L4 Post-traumatic syrinx Scoliosis Surgical History H/O neck surgery History of cholecystectomy History of fusion of cervical spine Family History Father Cancer Mother Heart disease Sister Heart disease Social History Smoking Status: Former smoker Smoking Status: Former smoker Substance Use Type: does not use Exam <DEA Espinosa - Last Filed: 06/06/22 16:43> Narrative Exam Narrative: Reviewed vitals signs and nursing notes. General: cooperative, comfortable, in no acute distress, well groomed HEENT: symmetrical facial expressions, moist mucous membranes, atraumatic= MSK: moves all extremities, neurovascularly intact, no weakness, normal tone, patient is ambulatory, mild edema over bilateral medial malleoli, tenderness to bilateral CFL ligaments on the medial aspect, ATFL ligaments on medial aspect. Dorsiflexion and or plantar extension intact bilaterally, PT pulses are 2+, without erythema, ecchymosis, or open wound, bilateral feet are warm to palpation, right thigh with mild tenderness over the distal quadriceps with full right knee mobility including extension and flexion, no suprapatellar effusion, tenderness to the knee ligaments. Skin: brisk capillary refill, without pallor or erythema Neuro: normal speech and cognition, A&O x3, ambulatory, clear speech Psych: mental status is grossly normal, congruent mood, normal affect, pleasant and cooperative Initial Vital Signs Initial Vital Signs: Vital Signs Temperature 97.6 F 06/06/22 11:45 Pulse Rate 88 06/06/22 11:45 Respiratory Rate 20 06/06/22 11:45 Blood Pressure 140/62 06/06/22 11:45 Pulse Oximetry 98 06/06/22 11:45 Oxygen Delivery Method 06/06/22 11:45 <Aris Flood DO - Last Filed: 06/06/22 17:23> Initial Vital Signs Initial Vital Signs: Vital Signs Temperature 97.6 F 06/06/22 11:45 Pulse Rate 88 06/06/22 11:45 Respiratory Rate 20 06/06/22 11:45 Blood Pressure 140/62 06/06/22 11:45 Pulse Oximetry 98 06/06/22 11:45 Oxygen Delivery Method 06/06/22 11:45 Course <DESIREE EspinosaP - Last Filed: 06/06/22 16:43> Orders Ordered: ED Orders 06/06/22 14:57 XR ankle LT min 3V Stat XR ankle RT min 3V Stat Vital Signs Vital signs: Vital Signs - 8 hr 06/06/22 11:45 Temperature 97.6 F Pulse Rate 88 Respiratory Rate 20 Blood Pressure 140/62 Pulse Oximetry 98 Oxygen Delivery Method Room Air <DO Jose Antonio Longo Last Filed: 06/06/22 17:23> Orders Ordered: ED Orders 06/06/22 14:57 XR ankle LT min 3V Stat XR ankle RT min 3V Stat Vital Signs Vital signs: Vital Signs - 8 hr 06/06/22 11:45 Temperature 97.6 F Pulse Rate 88 Respiratory Rate 20 Blood Pressure 140/62 Pulse Oximetry 98 Oxygen Delivery Method Room Air MDM - Fall <DEA Espinosa - Last Filed: 06/06/22 16:43> Imaging Data Extremity x-ray #2: Radiologist's Impression: Diagnostics Reports Barbara Monsalve??67??F??1955 ? Allergy/Adv: erythromycin base, Penicillins, tetracycline, zoledronic acid, salicylic acid (More??) Close Ankle X-Ray (Signed) Saima Dunn - 06/06/22 Ankle X-Ray (Signed) Saima Dunn - 06/06/22 Facet Joint Injection X-Ray (Signed) Denver Dhillon - 05/13/22 LS Transforaminal Injection (Signed) Denver Dhillon - 12/31/21 Thoracic Spine X-Ray (Signed) Huong Liao - 12/25/21 Chest X-Ray (Signed) Denver Dhillon - 10/08/[address] (Signed) Mario Randle - 10/08/21 Lumbar Spine X-Ray (Signed) Saima Dunn - 10/07/21 Lumbar Spine MRI (Signed) Antonino Thurston - 11/10/20 Outside DI 01/06/19 Outside DI 01/06/19 Outside DI 01/06/19 Ankle MRI (Signed) Wilfrido Larson - 04/07/18 Foot X-Ray (Signed) Leonel Borden - 12/23/17 Launch?[address] [address] XRay Report Signed Patient: Barbara Monsalve MR#: [id number] : 1955 Acct:[id number] Age/Sex: 67 / F Date of Service: 06/06/22 Loc: ED Accession Number: [id number] ?? Procedure: XR ankle RT min 3V Ordering Provider: Sandra Lorenzo PROCEDURE:? XR ANKLE RT MIN 3V ? INDICATIONS:? medial pain s/p fall, sprain? ? TECHNIQUE:? Three views of the ankle were acquired.? ? [facility] [place] X[facility] ANKLE 1 OR 2 VIEWS WEIGHT BEARING RIGHT, 03/23/2018, 8:37. ? FINDINGS:? ? Bones:? Chronic cortical irregularity of the distal tibia and fibula.? Mild anterior tibiotalar spurring and spurring at both malleoli.? There may be a tiny avulsion fracture along the medial malleolus.? The mortise with is not well assessed given current positioning.? A prominent calcaneal spur is present, symmetric with the contralateral side. ? Soft tissues:? No tibiotalar joint effusion.? Achilles tendon appears normal.? Moderate medial soft tissue swelling. ? ? IMPRESSION:? ? 1. Moderate medial soft tissue swelling with questionable nondisplaced avulsion at the tip of the medial malleolus. ? 2. Probable remote injury and healing deformities of the distal fibula and tibia.? Dictated by: Saima Dunn M.D. on 06/06/2022 at 16:03 ? ? Approved by: Saima Dunn M.D. on 06/06/2022 at 16:09 ? Extremity x-ray #1: Radiologist's Impression: PROCEDURE:? XR ANKLE LT MIN 3V ? INDICATIONS:? medial pain s/p fall, sprain? ? TECHNIQUE:? Three views of the ankle were acquired.? ? COMPARISON:? None. ? FINDINGS:? ? Bones:? No fractures or dislocations.? Ankle mortise is normally aligned.? No suspicious bony lesions.? Prominent plantar calcaneal spur. ? Soft tissues:? No tibiotalar joint effusion.? Achilles tendon appears normal.? ? ? IMPRESSION:? Intact left ankle. ? Dictated by: Saima Dunn M.D. on 06/06/2022 at 16:02 ? ? Approved by: Saima Dunn M.D. on 06/06/2022 at 16:02 ? [facility] Narrative Medical decision making narrative: This is a 67-year-old female who presents to the emergency department after she had a fall 5 days ago and complains of bilateral medial ankle pain with concern for swelling around her ankles and tenderness to palpation. Patient had mild tenderness over the ATFL and CFL ligaments on the medial aspect of bilateral ankles, no tenderness over bilateral malleoli on bilateral sides. Dorsiflexion plantar extension intact bilaterally, patient is ambulatory without deficit. X- ray her left ankle do not show acute fracture, she has some mild soft tissue edema without ecchymosis, wound, or erythema over these areas with normal range of motion of her above and below joints. Right ankle x-ray shows likely an avulsion fracture off the tip of the medial malleolus without displacement. Moderate medial soft tissue swelling with a probable remote injury and healing deformities of the distal fibula and tibia. Patient does have history of ankle fracture on the lateral aspect and does not have any pain over on the side currently. She has more pain on the right ankle especially when bearing weight, this is most likely fractured as she has tenderness right at this point. She was fitted in a walking boot, tolerated well, she remains neurovascularly intact, and her pain was well controlled. I encouraged her to follow-up at [facility] in 1 week or less. Patient has a walker which she will use to ambulate Patient is appropriate and amenable to discharge home. Vital signs are stable on repeat examination is unremarkable. Patient has been informed of results. Patient has been given strict return to ER precautions for any new or worsening symptoms. Patient understands to follow up closely with outpatient providers as instructed. Patient understands plan and agrees to discharge home. All questions and concerns answered at this time. Discharge Plan Departure Patient Disposition: Home Clinical Impression: Avulsion fracture of medial malleolus Qualifiers: Encounter type: initial encounter Fracture type: closed Laterality: right Qualified Code(s): S82.51XA - Displaced fracture of medial malleolus of right tibia, initial encounter for closed fracture Left ankle sprain Qualifiers: Encounter type: initial encounter Involved ligament of ankle: anterior talofibular ligament Qualified Code(s): S93.492A - Sprain of other ligament of left ankle, initial encounter Right ankle sprain Qualifiers: Encounter type: initial encounter Involved ligament of ankle: calcaneofibular ligament Qualified Code(s): S93.411A - Sprain of calcaneofibular ligament of right ankle, initial encounter Instructions: Ankle Fracture, DI for Avulsion Fracture, How to Apply an Elastic Wrap on Ankle Activity Restrictions/Additional Instructions: *You have been diagnosed with likely an avulsion fracture of the tip of the medial malleolus/ankle bone. There is a very small fracture going through the tip of that bone right below the ankle prominence. Please wear the boot while your upright and ambulating to protect the joint, please use your walker to help stay balanced. Please follow-up at [facility] for follow-up in 1 week or so. Please follow-up with Dr. Lindsey as needed, please return for worsening pain, try to elevate this frequently, take ibuprofen and your other pain medications as needed and ice may be helpful as well. It was a pleasure to meet you, I hope this heals quickly and without intervention. *What to do: *Please continue to take your regular medications as directed. [ ] New medication prescriptions sent to your pharmacy: [ ] [ ] New medication written as a paper prescription [x ] No new medications given *Please follow up with your primary care provider in 2-3 days, call for an appointment. Let them know you were seen in the Emergency Department and that we asked that you be seen for follow-up. We will electronically transmit a record of today's note if your PCP is in our system *If you do not have a primary care provider please contact [phone] to establish care with one of the [facility] primary care providers. *Return to Emergency Department if you should have any new, worsening, or concerning symptoms, such as [fever greater than 101F, chills, worsening pain, persistent vomiting or other bothersome symptoms]. Prescriptions: No Action levothyroxine [Synthroid] 125 mcg tablet 125 mcg PO DAILY duloxetine [Cymbalta] 60 mg capsule,delayed release(DR/EC) 60 mg PO BID multivitamin [Daily Multi-Vitamin] Tablet 1 tab PO DAILY oxycodone 10 mg tablet extended release 12 hr PO tizanidine 2 mg tablet 2 mg PO BID PRN (Reason: muscle spasticity) metoprolol succinate 50 mg tablet extended release 24 hr PO methocarbamol 750 mg tablet 750 mg PO .PRN losartan 50 mg tablet 50 mg PO DAILY hydrocodone-acetaminophen 10-325 mg tablet 1 tab PO DAILY aripiprazole 10 mg tablet 30 mg PO DAILY sumatriptan succinate 50 mg tablet PO Label Comments: take 1 tablet by mouth if needed AT ONSET OF HEADACHE may repeat in 2 hours IF headache PERSIST levothyroxine [Synthroid] 125 mcg tablet 125 mcg PO DAILY oxycodone 10 mg tablet,oral only,ext.rel.12 hr 10 mg PO Q12H Januvia 50 mg tablet 50 mg PO DAILY metformin 500 mg tablet extended release 24 hr 500 mg PO DAILY hydrochlorothiazide 25 mg tablet 25 mg PO DAILY gabapentin 600 mg tablet 600 mg PO .COMPLEX Qty: 90 2RF Rx Instructions: 600 mg PO 1-2 PO Tid to begin at HS and titrate to nerve pain relief; Referrals: [facility] [Provider Group] - 5-7 days Mark Lindsey DO [Physician] - Stuart Lutz MD [Primary Care Provider] - Visit Report Forms: Patient Portal/API <Aris Flood DO - Last Filed: 06/06/22 17:23> Cosign ED Attending Cosignature Attestation: Dr Flood Co-Sign Statement: I was available for consultation during this patient's emergency department visit. This chart is signed by myself for administrative purposes only. I did not have direct contact with this patient during this visit. They were seen independently by the APC.
--- NOTE | 2022-06-06 16:49 | PC.NURSE ---
pt states it feels numb but it is numb on and off.
--- NOTE | 2022-06-06 16:52 | PC.NURSE ---
pt refused discharge vitals.
== END 2022-06-06 16:51 | disposition home or self-care (01) ==
PROVIDERS: Emergency Provider Nurse Practitioner Critical Care Medicine; PCP Internal Medicine
DX: S82.51XA Displaced fracture of medial malleolus of right tibia, initial encounter for closed fracture (principal); S93.492A Sprain of other ligament of left ankle, initial encounter; S93.411A Sprain of calcaneofibular ligament of right ankle, initial encounter; W18.30XA Fall on same level, unspecified, initial encounter
CPT/HCPCS: 73610; 99283

== ENCOUNTER 2022-09-02 08:01 | Outpatient (CLI) | payer MEDICARE, OTHER, SELFPAY ==
[2022-09-02] VITALS (7 sets, daily range): BP systolic 123–185; BP diastolic 60–88; PULSE 66–69; RESP 15–18; TEMP 36.9; O2SAT 96–98
--- NOTE | 2022-09-02 08:02 | DI.RAD.S_ITS ---
PROCEDURE: PAIN L/S FACET INJ/BLK 1ST ZAFAR COMPARISON: CR, XR LUMBAR SPINE MIN 4V, 10/07/2021, 9:17. [facility], MR, MR LUMBAR SPINE WO CON, 11/10/2020, 8:23. [facility], RG, MRI L-SPINE W/WO CONTRAST, 01/06/2019, 8:40. INDICATIONS: SPONDYLOSIS FINDINGS: 6 intraoperative fluoroscopy images were obtained, demonstrating needle placement at L4, L5 and S1 bilaterally. IMPRESSION: Fluoroscopy for pain management. Dictated by: Dianne Rodriguez M.D. on 09/02/2022 at 10:40 Approved by: Dianne Rodriguez M.D. on 09/02/2022 at 10:41
[2022-09-02] MEDS: MIDAZOLAM 2 MG/2 ML VIAL IV (09:21)
[2022-09-02] MEDS: LIDOCAINE 1% 20 ML 5 ML INJ (09:29)
[2022-09-02] MEDS: IOPAMIDOL 15 ML VIAL 3 ML INJ (09:30)
[2022-09-02] MEDS: BUPIVACAINE 0.5% (PF) 30 ML VIAL 5 ML INJ (09:30)
--- NOTE | 2022-09-02 09:41 | P.PCN_ITS ---
Date/Time/Diagnoses Date of procedure: 09/02/22 Time of procedure: 09:41 Pre-procedure diagnosis: 1. FACET ARTHROPATHY Post-procedure diagnosis: same Procedure Notes Procedure: 1. BILATERAL- L4, L5 and S1 DIAGNOSTIC MB BLOCKS with LA Anesthetic Indications: Barbara is referred by Dr. Lutz for treatment of Bilateral Axial LBP. Physician: Mark Lindsey Total Fluoroscopy time (seconds): 14 Total sedation minutes: 16 Complications: none Procedure in detail & Post-procedure care: DESCRIPTION OF PROCEDURE Fluoroscopically guided, contrast-controlled bilateral L4, L5 and S1 medial branch blocks with 0.5cc of 0.5% Marcaine. Following review of allergy and review of potential side effects and complications, including, but not necessarily limited to, infection, allergic reaction, local tissue breakdown, nerve injury, paralysis, stroke and possible , the patient indicated that the patient understood and agreed to proceed. An informed consent document was signed by the patient, witnessed by a nurse, and placed in the patient's chart. After review of previous anaesthesic history and IV conscious sedation the patient was deemed safe to proceed with today's procedure with IV conscious sedation as ASA class II designation. Safety time-out was performed to confirm patient ID, procedure to be performed and site of procedure. IV sedation was accomplished with a combination of 2mg of Versed was administered by the RN after DO order, titrated to patient comfort during the course of the procedure while the patient remained responsive to all verbal commands In the prone position, following sterile prep and drape of the lumbar region, the right L4, L5 and S1 anatomical location of the medial branch of the dorsal ramus was identified fluoroscopically. Subsequently an anesthetic skin wheal using 1% lidocaine solution was initiated at each of the anatomical spots. Subsequently then a 22-gauge 5-inch spinal needle was atraumatically introduced and advanced under fluoroscopic guidance at each of the corresponding sites at the right L4, L5 and S1 MB. After negative aspiration, 0.2cc of Isovue 200 was injected, confirming placement without vascular or intrathecal uptake. Subsequently then 0.5cc of 0.5% Marcaine solution was injected at each of the corresponding sites at the right L4, L5 and S1 medial branch locations. The identical procedure was replicated on the left. The patient tolerated the procedure well without signs or symptoms of complications prior to transfer to the recovery area continued monitoring without incident. Post-procedure, the patient was monitored initiating provocative activities to measure the amount of relief from block of the facetogenic pain. The patient reported a VAS of 7 prior to the procedure and a post-procedure VAS of 1. It has been a pleasure to assist in the diagnostic and therapeutic care of your patient. POST OP INSTRUCTIONS The patient was provided with a Pain Log to complete over the next several hours and subsequent days prior to the patient's follow up with the ordering physician. If the patient has oyster bed worker relief to the solution applied, then they may be a candidate for medial branch rhizotomy. The patient is aware, was provided, once again, with a Pain Log and will follow up with the referring physician for review and clinical correlation
== END 2022-09-02 09:51 | disposition home or self-care (01) ==
LOC: RAD 08:02
PROVIDERS: PCP Internal Medicine; Referring Provider Physical Medicine & Rehabilitation; Visit Provider Physical Medicine & Rehabilitation
DX: M47.816 Spondylosis without myelopathy or radiculopathy, lumbar region (principal); M47.817 Spondylosis without myelopathy or radiculopathy, lumbosacral region
CPT/HCPCS: 64493; 64494; 99152; J2250

== ENCOUNTER 2022-12-11 09:35 | Outpatient (CLI) | payer MEDICARE, OTHER, SELFPAY ==
[2022-12-11] VITALS (17 sets, daily range): BP systolic 96–137; BP diastolic 55–86; PULSE 54–63; RESP 12–33; TEMP 35.9; O2SAT 96–100
--- NOTE | 2022-12-11 09:37 | DI.RAD.S_ITS ---
PROCEDURE: PAIN L/S MED/LAT N RFA BILAT INDICATIONS: SPONDYLOSIS COMPARISON: CR, XR LUMBAR SPINE MIN 4V, 10/07/2021, 9:17. MR, MR LUMBAR SPINE WO CON, 11/10/2020, 8:23. FINDINGS: Fluoroscopic spot filming was performed to verify placement of spinal needles at the L4, L5 and S1 level(s), as labeled on the films. Appropriate location(s) of the needle tip(s) was confirmed by injection of iodinated contrast. IMPRESSION: Fluoroscopy for needle placement. Dictated by: Dianne Rodriguez M.D. on 12/12/2022 at 7:37 Approved by: Dianne Rodriguez M.D. on 12/12/2022 at 7:38
[2022-12-11] MEDS: LIDOCAINE 1% 20 ML 5 ML INJ (10:53)
[2022-12-11] MEDS: BUPIVACAINE 0.5% (PF) 10 ML VIAL 5 ML INJ (10:53)
[2022-12-11] MEDS: MIDAZOLAM 2 MG/2 ML VIAL 4 MG IV (11:22)
--- NOTE | 2022-12-11 11:40 | P.PCN_ITS ---
Date/Time/Diagnoses Date of procedure: 12/11/22 Time of procedure: 11:40 Pre-procedure diagnosis: 1. RECALCITRANT FACET ARTHROPATHY Post-procedure diagnosis: same Procedure Notes Procedure: 1. BILATERAL L4 AND L5 MEDIAL BRANCH RADIOFREQUENCY NEUROTOMY AND S1 DORSAL RAMUS BRANCH RADIOFREQUENCY NEUROTOMY Indications: Barbara is referred by Dr. Lutz for treatment of facet arthropathy. Physician: Mark Lindsey Total Fluoroscopy time (seconds): 24 Total sedation minutes: 44 Complications: none Procedure in detail & Post-procedure care: DESCRIPTION OF PROCEDURE Bilateral L4 and L5 medial branch radiofrequency neurotomy and bilateral S1 dorsal ramus radiofrequency neurotomy under fluoroscopy with conscious sedation. The patient is well known to this clinic having undergone previous facet injections with good but temporary relief. The patient has experienced appropriate, concordant relief with previous facet and median branch blocks but the patient's pain has been recalcitrant to further conservative measures. Therefore, based upon the patient's relief and persistent symptoms, the patient is considered an appropriate candidate for facet rhizotomy. All of the patient's questions regarding the risks versus benefits of the procedure, including, but not limited to, bleeding, infection, temporary as well as lasting nerve injury, paralysis, stroke, and , as well treatment alternatives were answered to satisfaction. After obtaining informed consent, denial of pertinent drug allergies, as well as being made aware of the potential risks of bleeding, infection, spinal cord trauma, paralysis, temporary and permanent nerve damage, seizure, stroke, and possible , the patient was brought to the fluoroscopy suite and positioned prone on the fluoroscopy table. The lumbar region was prepped with Betadine and covered with a fenestrated drape in the usual sterile fashion. Appropriate monitors applied including pulse oximeter, pulse, and blood pressure for regular monitoring throughout the procedure. After review of previous anaesthesic history and IV conscious sedation the patient was deemed safe to proceed with today's procedure with IV conscious sedation as ASA class II designation. Safety time-out was performed to confirm patient ID, procedure to be performed and site of procedure. IV sedation was accomplished with a combination of 4mg of Versed administered by the RN after DO order, titrated to patient comfort during the course of the procedure while the patient remained responsive to all verbal commands. After local infiltration using 1% lidocaine, under fluoroscopic guidance, a 10- cm RF insulated needle with a 10-mm active tip was positioned parallel to the junction of the right sacral ala and the superior articulating process where the S1 dorsal ramus resides. Needle placement was confirmed with motor stimulation of .5v on the right which produced local stimulation without radicular component. The stimulation was then increased to 2v with, once again, only local multifidus stimulation without radicular component. The needle was then removed and the identical procedure was performed along the length of the right L5 medial branch with motor stimulation at .7v on the right. The identical procedure was once again performed along the length of the right L4 medial branch with motor stimulation of .5v on the right. The medial branches were then anesthetised with 0.5% Marcaine. This was then followed by two discreet lesions performed at 80 degrees Celsius for 90 seconds each. The identical procedure was repeated on the left. The patient tolerated the procedure well without signs or symptoms of complications prior to transfer to the recovery area continued monitoring without incident. The patient was then transferred to the recovery area where they were observed for an appropriate period of time after the injection. The patient reported a VAS score of 9 prior to the procedure and a post-procedure VAS of 0. POST OP INSTRUCTIONS The patient was provided a Pain Log to continue to record the patient's response to the target-specific procedure prior to the patient's follow-up visit with the referring physician. Additionally, specific post-injection care instructions and a contact number to our office were provided if concerns arise regarding possible complications associated with the procedure are suspected.
== END 2022-12-11 12:31 | disposition home or self-care (01) ==
PROVIDERS: PCP Internal Medicine; Referring Provider Physical Medicine & Rehabilitation; Visit Provider Physical Medicine & Rehabilitation
DX: M47.816 Spondylosis without myelopathy or radiculopathy, lumbar region (principal); M47.817 Spondylosis without myelopathy or radiculopathy, lumbosacral region
CPT/HCPCS: 64635; 64636; 99152; 99153; J2250

== ENCOUNTER 2023-07-16 06:52 | Outpatient (CLI) | payer MEDICARE, OTHER, SELFPAY ==
[2023-07-16] VITALS (9 sets, daily range): BP systolic 121–154; BP diastolic 55–67; PULSE 61–66; RESP 12–20; TEMP 36.4; O2SAT 95–100
--- NOTE | 2023-07-16 06:54 | DI.MRI.S_ITS ---
PROCEDURE: MR THORACIC SPINE WO CON INDICATIONS: LUMBAR RADICULOPATHY TECHNIQUE: Noncontrast sagittal T1 spine echo and T2 fast spin echo, sagittal STIR, and T2 fast spin echo through the thoracic spine. COMPARISON: [facility], RG, MRI T-SPINE W/WO CONTRAST, 01/06/2019, 8:06. FINDINGS: Image quality: Excellent. Alignment and Curvature: There is normal bony alignment. Bone Marrow: Marrow is of normal overall signal. No acute vertebral body compression fractures. 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 The central canal of the thoracic cord is prominent from the level of T3-T4 to the level of T6. The cord syrinx extends approximately from T6 through T9. It is similar in appearance to previous. Paraspinous Soft Tissues: No paravertebral masses. Miscellaneous: On axial images, central canal and foramina appear widely patent at all scanned levels. There is multilevel thoracic facet arthropathy, which is present on the right from T4-T5 through T10-T11 and on the left at T5-T6 and T7-T8 through T10-T11. IMPRESSION: 1. 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 It extends approximately from T6 through T9. 2. No canal stenosis or foraminal stenosis. 3. Multilevel thoracic facet arthropathy. Dictated by: Roberto Ashraf M.D. on 07/16/2023 at 10:45 Approved by: Roberto Ashraf M.D. on 07/16/2023 at 10:51
--- NOTE | 2023-07-16 08:45 | DI.RAD.S_ITS ---
PROCEDURE: PAIN L/S TRANSFORAM INJECT ZAFAR COMPARISON: [facility], MR, MR THORACIC SPINE WO CON, 07/16/2023, 7:34. CR, XR THORACIC SPINE 3V, 12/25/2021, 7:46. INDICATIONS: LUMBAR RADICULOPATHY FINDINGS: 8 intraoperative fluoroscopy images demonstrate needle placement at L4-L5 bilaterally. IMPRESSION: Fluoroscopy for pain management. Dictated by: Dianne Rodriguez M.D. on 07/16/2023 at 10:52 Approved by: Dianne Rodriguez M.D. on 07/16/2023 at 10:54
[2023-07-16] MEDS: MIDAZOLAM 2 MG/2 ML VIAL IV (09:09)
[2023-07-16] MEDS: BETAMETHASONE 30 MG/5 ML MDV 12 MG INJ (09:17)
[2023-07-16] MEDS: BUPIVACAINE 0.25% (PF) VIAL 2 ML INJ (09:17)
[2023-07-16] MEDS: DEXAMETHASONE 10 MG/ML VIAL 20 MG INJ (09:17)
[2023-07-16] MEDS: iopamidoL 15 ML VIAL 3 ML INJ (09:18)
[2023-07-16] MEDS: LIDOCAINE 1% 20 ML 5 ML INJ (09:18)
--- NOTE | 2023-07-16 09:36 | PM.PROC.IR.1 ---
Date/Time/Diagnoses Date of procedure: 07/16/23 Time of procedure: 09:36 Pre-procedure diagnosis: 1. FORAMINAL STENOSIS WITH LE SYMPTOMS Procedure Notes Procedure: 1. FLUOROSCOPICALLY GUIDED CONTRAST CONTROLLED TRANSFORAMINAL EPIDURAL STEROID INJECTION - BILATERAL L4/5 TFESI Indications: Barbara is referred by Dr. Lutz for treatment of Foraminal Stenosis with bilateral LE Symptoms Physician: Mark Lindsey Total Fluoroscopy time (seconds): 20 Total sedation minutes: 22 Complications: none Procedure in detail & Post-procedure care: FINDINGS Foraminal Nerve Root Compression secondary to disc disease and facet hypertrophy DESCRIPTION OF PROCEDURE Following review of allergy and review of potential side effects and complications, including, but not necessarily limited to, infection, allergic reaction, local tissue breakdown, stroke, temporary or permanent nerve injury, paralysis, and possible , the patient indicated that the patient understood and agreed to proceed. An informed consent document was signed by the patient, witnessed by a nurse, and placed in the patient's chart. Additionally, other treatment options including medications, modalities, and physical therapy were reviewed with the patient. After review of previous anaesthesic history and IV conscious sedation the patient was deemed safe to proceed with today?s procedure with IV conscious sedation as ASA class II designation. Safety time-out was performed to confirm patient ID, procedure to be performed and site of procedure. IV sedation was accomplished with a combination of 2mg of Versed was administered by the RN after DO order, titrated to patient comfort during the course of the procedure while the patient remained responsive to all verbal commands In the prone position following sterile prep and drape of the lumbar region, the right L4/5 posterior neuroforamen was identified fluoroscopically. The skin was anesthetized via a 25-gauge 1.5-inch needle with 1% lidocaine solution. At this point, a 25-gauge 3.5-inch spinal needle was atraumatically introduced and advanced under fluoroscopic guidance through the posterior right L4/5 neuroforamen to approximately the anterior aspect of the canal. Depth was confirmed on lateral view. Following negative aspiration, injection of approximately 1.5cc of Isovue 200 under live fluoroscopy in the AP view confirmed excellent flow along the nerve root, into the epidural space without vascular or intrathecal uptake observed Radiological data, including multiple fluoroscopic views of the lumbosacral spine, reveal a spinal needle at the right L4/5 posterior neuroforamen. Subsequent views show flow of contrast material flowing superiorly and inferiorly along the nerve root confirming epidural flow. Subsequently, a test dose of 1.5cc of 1% lidocaine solution was administered and patient was observed for two minutes for signs or symptoms of complications, including abdominal pain, shortness of breath, bilateral upper or lower extremity weakness, nausea and vomiting, prior to steroid injection. At this point, a total of 2cc or 10mg of dexamethasone and 6mg betamethasone was injected without incident. Attention was then refocused to the left L4/5 level where the identical procedure was replicated. The procedure tolerated the procedure well without signs or symptoms of complications prior to transfer to the recovery area continued monitoring without incident. The patient was then transferred to the recovery area where they were observed for an appropriate time after the injection. The patient reported a VAS score of 7 prior to the procedure and a post-procedure VAS of 0. POST OP INSTRUCTIONS The patient was provided a Pain Log to continue to record their response to the target-specific procedure prior to follow-up visit with their referring physician. Additionally, specific post-injection care instructions and a contact number to our office were provided if concerns arise regarding possible complications associated with the procedure are suspected.
== END 2023-07-16 09:41 | disposition home or self-care (01) ==
PROVIDERS: PCP Internal Medicine; Referring Provider Physical Medicine & Rehabilitation; Visit Provider Physical Medicine & Rehabilitation
DX: M48.061 Spinal stenosis, lumbar region without neurogenic claudication (principal); M51.16 Intervertebral disc disorders with radiculopathy, lumbar region; M47.26 Other spondylosis with radiculopathy, lumbar region; M47.814 Spondylosis without myelopathy or radiculopathy, thoracic region
CPT/HCPCS: 64483; 72146; 99152; J0702; J1100; J2250; J3490

== ENCOUNTER → 2023-08-15 09:08 | Outpatient (CLI) | payer MEDICARE, OTHER, SELFPAY ==
--- NOTE | 2023-08-15 09:09 | DI.RAD.S_ITS ---
PROCEDURE: XR CERVICAL SPINE 4V OR 5V INDICATIONS: NECK PAIN TECHNIQUE: 5 views of the cervical spine acquired. COMPARISON: None. FINDINGS: Bones: Moderate degenerative changes. Possible lower cervical vertebral body fusion. No traumatic subluxation. Oblique views, there may be some areas of neural foraminal narrowing, greater on the left in the mid and lower cervical spine. C1 on C2 alignment is maintained on odontoid view. Soft tissues: No pathologic prevertebral soft tissue swelling. IMPRESSION: Moderate degenerative changes. If there is high concern for further derangement, consider MRI evaluation. Dictated by: Gerardo Alaniz M.D. on 08/15/2023 at 10:12 Approved by: Gerardo Alaniz M.D. on 08/15/2023 at 10:14
== END ==
PROVIDERS: PCP Internal Medicine; Referring Provider Physical Medicine & Rehabilitation; Visit Provider Physical Medicine & Rehabilitation
DX: M47.812 Spondylosis without myelopathy or radiculopathy, cervical region (principal); Z98.1 Arthrodesis status
CPT/HCPCS: 72050

== ENCOUNTER → 2023-10-10 08:55 | Outpatient (CLI) | payer MEDICARE, OTHER, SELFPAY ==
--- NOTE | 2023-10-10 09:28 | DI.MRI.S_ITS ---
PROCEDURE: MR CERVICAL SPINE WO CON INDICATIONS: Cervical myeloradiculopathy TECHNIQUE: Noncontrast sagittal T1 spin echo and T2 fast spin echo, sagittal STIR, foraminal oblique sagittal T2 fast spin echo, and axial gradient echo or T2 fast spin echo through the cervical spine. COMPARISON: [facility], RG, MRI C-SPINE W/WO CONTRAST, 01/06/2019, 7:38. FINDINGS: Image quality: Excellent. Alignment and Curvature: Remote mature interbody fusion at C6-C7. There is normal bony alignment. Bone Marrow: Marrow demonstrates normal overall signal. Spinal Cord: Visualized spinal cord has normal size and signal. No cerebellar tonsillar herniation. Paraspinous Soft Tissues: No paravertebral masses. Prevertebral soft tissues are normal in thickness. C2-C3: Left uncovertebral joint hypertrophy. No canal stenosis. Right foramen patent. Moderate left foraminal narrowing. C3-C4: No canal stenosis. Mild left uncovertebral joint hypertrophy and left facet hypertrophy with moderate left foraminal narrowing and mild flattening deformity on the exiting left C4 nerve root. C4-C5: Progressive findings. Development of mild chronic disc height loss. Increase in diffuse disc bulge abutting the cord. Moderate to severe central canal stenosis. AP diameter of the central canal measures 7.7 mm on image 26 of axial series 5. There is prominent bilateral uncovertebral joint hypertrophy. There is moderate to severe right foraminal narrowing and severe left foraminal narrowing with bilateral foraminal C5 nerve root impingement. C5-C6: Progressive findings. Development of mild disc height loss. Increase in diffuse disc bulge, abutting the cord. AP diameter of the central canal measures 8.4 mm. Prominent bilateral uncovertebral joint hypertrophy. Severe bilateral foraminal narrowing with bilateral foraminal C6 nerve root impingement. . C6-C7: Mature interbody fusion. No canal stenosis or foraminal stenosis. C7-T1: No canal stenosis or foraminal stenosis IMPRESSION: 1. Remote mature interbody fusion at C6-C7 with expected findings at the surgical level. 2. Progression of findings at C4-C5 and C5-C6. 3. Central canal stenosis is moderate to severe at C4-C5 and moderate at C5-C6. 4. Significant multilevel foraminal narrowing as described above. Findings include bilateral foraminal nerve root impingement at C4-C5 and C5-C6. Dictated by: Roberto Ashraf M.D. on 10/12/2023 at 8:17 Approved by: Roberto Ashraf M.D. on 10/12/2023 at 8:52
== END ==
PROVIDERS: PCP Internal Medicine; Referring Provider Physical Medicine & Rehabilitation; Visit Provider Physical Medicine & Rehabilitation
DX: M47.22 Other spondylosis with radiculopathy, cervical region (principal); M50.121 Cervical disc disorder at C4-C5 level with radiculopathy; M48.02 Spinal stenosis, cervical region; Z98.1 Arthrodesis status
CPT/HCPCS: 72141

== ENCOUNTER 2023-11-10 07:23 | Outpatient (CLI) | payer MEDICARE, OTHER, SELFPAY ==
[2023-11-10] VITALS (8 sets, daily range): BP systolic 119–145; BP diastolic 60–78; PULSE 57–68; RESP 14–20; TEMP 36.2; O2SAT 94–99
--- NOTE | 2023-11-10 08:45 | DI.RAD.S_ITS ---
PROCEDURE: PAIN L/S TRANSFORAMINAL INJECT INDICATIONS: Left L4-5 transforaminal SUZY COMPARISON: None. FINDINGS: Fluoroscopic spot filming was performed to verify placement of spinal needles at the left L4-5 level(s), as labeled on the films. Appropriate location(s) of the needle tip(s) was confirmed by injection of iodinated contrast. IMPRESSION: Fluoro guidance was provided intraoperatively for left L4-5 transforaminal SUZY performed by ordering physician. Dictated by: Miguel Angel Sevilla M.D. on 11/10/2023 at 13:14 Approved by: Miguel Angel Sevilla M.D. on 11/10/2023 at 13:14
[2023-11-10] MEDS: MIDAZOLAM 2 MG/2 ML VIAL 1 MG IV (08:50)
[2023-11-10] MEDS: BUPIVACAINE 0.25% (PF) VIAL 2 ML INJ (08:57)
[2023-11-10] MEDS: DEXAMETHASONE 10 MG/ML VIAL INJ (08:57)
[2023-11-10] MEDS: BETAMETHASONE 30 MG/5 ML MDV 6 MG INJ (08:57)
[2023-11-10] MEDS: iopamidoL 15 ML VIAL 3 ML INJ (08:57)
--- NOTE | 2023-11-10 09:15 | P.PCN_ITS ---
Date/Time/Diagnoses Date of procedure: 11/10/23 Time of procedure: 09:15 Pre-procedure diagnosis: 1. FORAMINAL STENOSIS WITH LE SYMPTOMS Post-procedure diagnosis: same Procedure Notes Procedure: 1. FLUOROSCOPICALLY GUIDED CONTRAST CONTROLLED TRANSFORAMINAL EPIDURAL STEROID INJECTION - LEFT L4/5 Indications: Barbara is referred by Dr. Lutz for treatment of Foraminal Stenosis with Left LE Symptoms Physician: Mark Lindsey Total Fluoroscopy time (seconds): 10 Total sedation minutes: 20 Complications: none Procedure in detail & Post-procedure care: FINDINGS Foraminal Nerve Root Compression secondary to disc disease and facet hypertrophy DESCRIPTION OF PROCEDURE Following review of allergy and review of potential side effects and complications, including, but not necessarily limited to, infection, allergic reaction, local tissue breakdown, stroke, temporary or permanent nerve injury, paralysis, and possible , the patient indicated that the patient understood and agreed to proceed. An informed consent document was signed by the patient, witnessed by a nurse, and placed in the patient's chart. Additionally, other treatment options including medications, modalities, and physical therapy were reviewed with the patient. After review of previous anaesthesic history and IV conscious sedation the patient was deemed safe to proceed with today?s procedure with IV conscious sedation as ASA class II designation. Safety time-out was performed to confirm patient ID, procedure to be performed and site of procedure. IV sedation was accomplished with a combination of 1mg of Versed administered by the RN after DO order, titrated to patient comfort during the course of the procedure while the patient remained responsive to all verbal commands In the prone position following sterile prep and drape of the lumbar region, the left L4/5 posterior neuroforamen was identified fluoroscopically. The skin was anesthetized via a 25-gauge 1.5-inch needle with 1% lidocaine solution. At this point, a 25-gauge 3.5-inch spinal needle was atraumatically introduced and advanced under fluoroscopic guidance through the posterior left L4/5 neuroforamen to approximately the anterior aspect of the canal. Depth was confirmed on lateral view. Following negative aspiration, injection of approximately 1.5 cc of Isovue 200 under live fluoroscopy in the AP view confirmed excellent flow along the nerve root, into the epidural space without vascular or intrathecal uptake observed Radiological data, including multiple fluoroscopic views of the lumbosacral spine, reveal a spinal needle at the left L4/5 posterior neuroforamen. Subsequent views show flow of contrast material flowing superiorly and inferiorly along the nerve root confirming epidural flow. Subsequently, a test dose of 1.5 cc of 1% lidocaine solution was administered and patient was observed for two minutes for signs or symptoms of complications, including abdominal pain, shortness of breath, bilateral upper or lower extremity weakness, nausea and vomiting, prior to steroid injection. At this point, a total of 2cc or 10mg of dexamethasone and 6mg of betamethasone was injected without incident. The procedure tolerated the procedure well without signs or symptoms of complications prior to transfer to the recovery area continued monitoring without incident. The patient was then transferred to the recovery area where they were observed for an appropriate time after the injection. The patient reported a VAS score of 7 prior to the procedure and a post- procedure VAS of 0. POST OP INSTRUCTIONS The patient was provided a Pain Log to continue to record their response to the target-specific procedure prior to follow-up visit with their referring physician. Additionally, specific post-injection care instructions and a contact number to our office were provided if concerns arise regarding possible complications associated with the procedure are suspected.
--- NOTE | 2023-11-11 11:00 | PC.NURSE ---
Post-procedure note: Spoke with patient. She reports pain 3/10 VS 9/10 pre-injection. Questions about further injections and how often she can receive them - directed to contact clinic for further scheduling needs. No other concerns.
== END 2023-11-10 09:25 | disposition home or self-care (01) ==
PROVIDERS: PCP Internal Medicine; Referring Provider Physical Medicine & Rehabilitation; Visit Provider Physical Medicine & Rehabilitation
DX: M48.061 Spinal stenosis, lumbar region without neurogenic claudication (principal); M51.16 Intervertebral disc disorders with radiculopathy, lumbar region; M47.26 Other spondylosis with radiculopathy, lumbar region
CPT/HCPCS: 64483; 99152; J0702; J1100; J2250; J3490

== ENCOUNTER 2024-01-05 14:00 | Outpatient (CLI) | payer MEDICARE, OTHER, SELFPAY ==
[2024-01-05] VITALS (8 sets, daily range): BP systolic 130–147; BP diastolic 70–83; PULSE 86–93; RESP 13–16; TEMP 36.8; O2SAT 97–100
--- NOTE | 2024-01-05 15:30 | DI.RAD.S_ITS ---
PROCEDURE: PAIN L/S TRANSFORAMINAL INJECT INDICATIONS: Right L3-4 transforaminal SUZY COMPARISON: [facility], , PAIN L/S TRANSFORAMINAL INJECT, 11/10/2023, 8:57. FINDINGS: Fluoroscopic spot filming was performed to verify placement of spinal needles at the L3-4 level(s), as labeled on the films. Appropriate location(s) of the needle tip(s) was confirmed by injection of iodinated contrast. IMPRESSION: Fluoroscopic guidance utilized for an epidural injection at L3-4. Dictated by: David Hurt M.D. on 01/05/2024 at 17:26 Approved by: David Hurt M.D. on 01/05/2024 at 17:26
[2024-01-05] MEDS: MIDAZOLAM 2 MG/2 ML VIAL 1 MG IV (16:19)
[2024-01-05] MEDS: iopamidoL 15 ML VIAL 3 ML INJ (16:24)
[2024-01-05] MEDS: DEXAMETHASONE 10 MG/ML VIAL INJ (16:24)
[2024-01-05] MEDS: BUPIVACAINE 0.25% (PF) VIAL 2 ML INJ (16:25)
[2024-01-05] MEDS: BETAMETHASONE 30 MG/5 ML MDV 6 MG INJ (16:25)
--- NOTE | 2024-01-05 16:39 | P.PCN_ITS ---
Date/Time/Diagnoses Date of procedure: 01/05/24 Time of procedure: 16:39 Pre-procedure diagnosis: 1. FORAMINAL STENOSIS WITH LE SYMPTOMS Post-procedure diagnosis: same Procedure Notes Procedure: 1. FLUOROSCOPICALLY GUIDED CONTRAST CONTROLLED TRANSFORAMINAL EPIDURAL STEROID INJECTION - RIGHT L3/4 TFESI Indications: Barbara is referred by Dr. Lutz for treatment of Foraminal Stenosis with right LE Symptoms Physician: Mark Lindsey Total Fluoroscopy time (seconds): 15 Total sedation minutes: 15 Complications: none Procedure in detail & Post-procedure care: FINDINGS Foraminal Nerve Root Compression secondary to disc disease and facet hypertrophy DESCRIPTION OF PROCEDURE Following review of allergy and review of potential side effects and complications, including, but not necessarily limited to, infection, allergic reaction, local tissue breakdown, stroke, temporary or permanent nerve injury, paralysis, and possible , the patient indicated that the patient understood and agreed to proceed. An informed consent document was signed by the patient, witnessed by a nurse, and placed in the patient's chart. Additionally, other treatment options including medications, modalities, and physical therapy were reviewed with the patient. After review of previous anaesthesic history and IV conscious sedation the patient was deemed safe to proceed with today?s procedure with IV conscious sedation as ASA class II designation. Safety time-out was performed to confirm patient ID, procedure to be performed and site of procedure. IV sedation was accomplished with a combination of 1mg of Versed was administered by the RN after DO order, titrated to patient comfort during the course of the procedure while the patient remained responsive to all verbal commands In the prone position following sterile prep and drape of the lumbar region, the right L3/4 posterior neuroforamen was identified fluoroscopically. The skin was anesthetized via a 25-gauge 1.5-inch needle with 1% lidocaine solution. At this point, a 25-gauge 3.5-inch spinal needle was atraumatically introduced and advanced under fluoroscopic guidance through the posterior right L3/4 neuroforamen to approximately the anterior aspect of the canal. Depth was confirmed on lateral view. Following negative aspiration, injection of approximately 1.5 cc of Isovue 200 under live fluoroscopy in the AP view co nfirmed excellent flow along the nerve root, into the epidural space without vascular or intrathecal uptake observed Radiological data, including multiple fluoroscopic views of the lumbosacral spin e, reveal a spinal needle at the right L3/4 posterior neuroforamen. Subsequent views show flow of contrast material flowing superiorly and inferiorly along the nerve root confirming epidural flow. Subsequently, a test dose of 1.5 cc of 1% lidocaine solution was administered and patient was observed for two minutes for signs or symptoms of complications, including abdominal pain, shortness of breath, bilateral upper or lower extremity weakness, nausea and vomiting, prior to steroid injection. At this point, a total of 2cc or 10mg of dexamethasone and 6mg of betamethasone was injected without incident. The patient tolerated the procedure well without signs or symptoms of complications prior to transfer to the recovery area continued monitoring without incident. The patient was then transferred to the recovery area where they were observed for an appropriate time after the injection. The patient reported a VAS score of 7 prior to the procedure and a post-procedure VAS of 0. POST OP INSTRUCTIONS The patient was provided a Pain Log to continue to record their response to the target-specific procedure prior to follow-up visit with their referring p hysician. Additionally, specific post-injection care instructions and a contact number to our office were provided if concerns arise regarding possible complications associated with the procedure are suspected.
== END 2024-01-05 16:51 | disposition home or self-care (01) ==
LOC: RAD 14:02
PROVIDERS: PCP Internal Medicine; Referring Provider Physical Medicine & Rehabilitation; Visit Provider Physical Medicine & Rehabilitation
DX: M48.061 Spinal stenosis, lumbar region without neurogenic claudication (principal); M51.16 Intervertebral disc disorders with radiculopathy, lumbar region; M47.26 Other spondylosis with radiculopathy, lumbar region
CPT/HCPCS: 64483; 99152; J0702; J1100; J2250; J3490

== ENCOUNTER 2024-02-16 09:03 | Outpatient (CLI) | payer MEDICARE, OTHER, SELFPAY ==
[2024-02-16] VITALS (7 sets, daily range): BP systolic 137–160; BP diastolic 60–90; PULSE 65–72; RESP 16–19; TEMP 37.2; O2SAT 96–100
--- NOTE | 2024-02-16 10:15 | DI.RAD.S_ITS ---
PROCEDURE: PAIN L/S TRANSFORAM INJECT ZAFAR COMPARISON: [facility], XA, PAIN L/S TRANSFORAM INJECT ZAFAR, 07/16/2023, 10:17. INDICATIONS: SPONDYLOSIS FINDINGS: Fluoroscopic images demonstrate needle placement at the L3-L4 levels. Contrast was injected at these levels. IMPRESSION: Fluoroscopic images demonstrate needle placement at the L3-L4 levels. Please see procedure report for details. Dictated by: Nereida Anderson M.D. on 02/16/2024 at 17:06 Approved by: Nereida Anderson M.D. on 02/16/2024 at 17:06
[2024-02-16] MEDS: MIDAZOLAM 2 MG/2 ML VIAL IV (10:40)
[2024-02-16] MEDS: iopamidoL 15 ML VIAL 3 ML INJ (10:42)
[2024-02-16] MEDS: BUPIVACAINE 0.25% (PF) VIAL 2 ML INJ (10:42)
[2024-02-16] MEDS: BETAMETHASONE 30 MG/5 ML MDV 12 MG INJ (10:42)
[2024-02-16] MEDS: LIDOCAINE 1% 20 ML INJ (10:43)
[2024-02-16] MEDS: DEXAMETHASONE 10 MG/ML VIAL 20 MG INJ (10:43)
--- NOTE | 2024-02-16 11:03 | P.PCN_ITS ---
Date/Time/Diagnoses Date of procedure: 02/16/24 Time of procedure: 11:03 Pre-procedure diagnosis: 1. FORAMINAL STENOSIS WITH LE SYMPTOMS Post-procedure diagnosis: same Procedure Notes Procedure: 1. FLUOROSCOPICALLY GUIDED CONTRAST CONTROLLED TRANSFORAMINAL EPIDURAL STEROID INJECTION - BILATERAL L3/4 TFESI Indications: Barbara is referred by Dr. Lutz for treatment of Foraminal Stenosis with bilateral LE Symptoms Physician: Mark Lindsey Total Fluoroscopy time (seconds): 23 Total sedation minutes: 16 Complications: none Procedure in detail & Post-procedure care: FINDINGS Foraminal Nerve Root Compression secondary to disc disease and facet hypertrophy DESCRIPTION OF PROCEDURE Following review of allergy and review of potential side effects and complications, including, but not necessarily limited to, infection, allergic reaction, local tissue breakdown, stroke, temporary or permanent nerve injury, paralysis, and possible , the patient indicated that the patient understood and agreed to proceed. An informed consent document was signed by the patient, witnessed by a nurse, and placed in the patient's chart. Additionally, other treatment options including medications, modalities, and physical therapy were reviewed with the patient. After review of previous anaesthesic history and IV conscious sedation the patient was deemed safe to proceed with today?s procedure with IV conscious sedation as ASA class II designation. Safety time-out was performed to confirm patient ID, procedure to be performed and site of procedure. IV sedation was accomplished with a combination of 2mg of Versed was administered by the RN after DO order, titrated to patient comfort during the course of the procedure while the patient remained responsive to all verbal commands In the prone position following sterile prep and drape of the lumbar region, the right L3/4 posterior neuroforamen was identified fluoroscopically. The skin was anesthetized via a 25-gauge 1.5-inch needle with 1% lidocaine solution. At this point, a 25-gauge 3.5-inch spinal needle was atraumatically introduced and advanced under fluoroscopic guidance through the posterior right L3/4 neuroforamen to approximately the anterior aspect of the canal. Depth was confirmed on lateral view. Following negative aspiration, injection of approximately 1.5cc of Isovue 200 under live fluoroscopy in the AP view confirmed excellent flow along the nerve root, into the epidural space without vascular or intrathecal uptake observed Radiological data, including multiple fluoroscopic views of the lumbosacral spine, reveal a spinal needle at the right L3/4 posterior neuroforamen. Subsequent views show flow of contrast material flowing superiorly and inferiorly along the nerve root confirming epidural flow. Subsequently, a test dose of 1.5cc of 1% lidocaine solution was administered and patient was observed for two minutes for signs or symptoms of complications, including abdominal pain, shortness of breath, bilateral upper or lower extremity weakness, nausea and vomiting, prior to steroid injection. At this point, a total of 2cc or 10mg of dexamethasone and 6mg betamethasone was injected without incident. Attention was then refocused to the left L3/4 level where the identical procedure was replicated. The procedure tolerated the procedure well without signs or symptoms of complications prior to transfer to the recovery area continued monitoring without incident. The patient was then transferred to the recovery area where they were observed for an appropriate time after the injection. The patient reported a VAS score of 7 prior to the procedure and a post-procedure VAS of 0. POST OP INSTRUCTIONS The patient was provided a Pain Log to continue to record their response to the target-specific procedure prior to follow-up visit with their referring physician. Additionally, specific post-injection care instructions and a contact number to our office were provided if concerns arise regarding possible complica tions associated with the procedure are suspected.
== END 2024-02-16 11:20 | disposition home or self-care (01) ==
PROVIDERS: PCP Internal Medicine; Referring Provider Physical Medicine & Rehabilitation; Visit Provider Physical Medicine & Rehabilitation
DX: M48.061 Spinal stenosis, lumbar region without neurogenic claudication (principal); M51.16 Intervertebral disc disorders with radiculopathy, lumbar region; M47.26 Other spondylosis with radiculopathy, lumbar region
CPT/HCPCS: 64483; 99152; J0702; J1100; J2250; J3490

== ENCOUNTER → 2024-05-04 15:42 | Outpatient (CLI) | payer MEDICARE, OTHER, SELFPAY ==
--- NOTE | 2024-05-04 16:12 | DI.MRI.S_ITS ---
PROCEDURE: MR LUMBAR SPINE WO CON INDICATIONS: Lumbar radiculopathy TECHNIQUE: Noncontrast sagittal T1 spin echo and T2 fast echo, sagittal STIR, and T2 fast spin echo through the lumbar spine. In cases with scoliosis, additional coronal T2 fast spin echo may be performed. COMPARISON: [facility], MR, MR LUMBAR SPINE WO CON, 11/10/2020, 8:23. FINDINGS: Image quality: Excellent. Alignment and Curvature: There is 1-2 mm anterolisthesis of L4 on L5. Bone Marrow: There is no marrow edema. No acute vertebral body compression fractures. Spinal Cord: Conus medullaris terminates at the L1 level. Visualized cord demonstrates normal signal and size. Paraspinous Soft Tissues: No paravertebral masses. T12-L1: Disc desiccation is seen. Mild diffuse disc bulge and bilateral facet arthrosis is noted with hypertrophy of ligamentum flavum. There is mild central canal stenosis, no significant neural foraminal narrowing. L1-L2: There is disc desiccation. Bilateral facet arthrosis is seen. No significant central canal stenosis. There is mild right-sided neural foraminal narrowing. L2-L3: There is disc desiccation. Bilateral facet arthrosis is seen. No significant disc bulge, central canal stenosis or neural foraminal narrowing. L3-L4: There is disc desiccation. Broad-based disc bulge and bilateral facet arthrosis with hypertrophy of ligamentum flavum causing [id number] central canal stenosis and mild bilateral neural foraminal narrowing. L4-L5: There is disc desiccation. Broad-based disc bulge and bilateral facet arthrosis with hypertrophy of ligamentum flavum causing moderate central canal stenosis and moderate bilateral neural foraminal narrowing. Bulging disc likely contacting bilateral L4 nerve roots. L5-S1: There is mild disc desiccation. No significant disc bulge, canal stenosis or neural foraminal narrowing. Bilateral facet arthrosis is seen. IMPRESSION: 1. Degenerative disc disease throughout lumbar spine causing various degrees of central canal stenosis and bilateral neural foraminal narrowing more notably at L3-4 and L4-5 levels as above. 2. No marrow edema. No acute compression fracture. Trace anterolisthesis of L4 on L5. No gross paraspinous soft tissue abnormalities. Dictated by: Miguel Angel Sevilla M.D. on 05/05/2024 at 9:34 Approved by: Miguel Angel Sevilla M.D. on 05/05/2024 at 9:39
== END ==
PROVIDERS: PCP Internal Medicine; Referring Provider Physical Medicine & Rehabilitation; Visit Provider Physical Medicine & Rehabilitation
DX: M47.27 Other spondylosis with radiculopathy, lumbosacral region (principal); M47.26 Other spondylosis with radiculopathy, lumbar region; M51.16 Intervertebral disc disorders with radiculopathy, lumbar region; M48.061 Spinal stenosis, lumbar region without neurogenic claudication
CPT/HCPCS: 72148

== ENCOUNTER → 2024-05-12 | Outpatient (CLI) | payer MEDICARE, OTHER, SELFPAY ==
[2024-05-12] VITALS (9 sets, daily range): BP systolic 115–151; BP diastolic 55–76; PULSE 75–86; RESP 14–21; TEMP 36.2; O2SAT 94–99
--- NOTE | 2024-05-12 15:29 | DI.RAD.S_ITS ---
PROCEDURE: PAIN L/S TRANSFORAMINAL INJECT INDICATIONS: Left L3-4 and L4-5 transforaminal SUZY COMPARISON: [facility], , PAIN L/S TRANSFORAMINAL INJECT, 01/05/2024, 16:23. FINDINGS: Fluoroscopic spot filming was performed to verify placement of spinal needles at the L3-L4 and L4-L5 level(s), as labeled on the films. Appropriate location(s) of the needle tip(s) was confirmed by injection of iodinated contrast. IMPRESSION: L3-L4 and L4-L5 injections, please see operative note for full details. Dictated by: Gerardo Alaniz M.D. on 05/12/2024 at 21:37 Approved by: Gerardo Alaniz M.D. on 05/12/2024 at 21:38
[2024-05-12] MEDS: MIDAZOLAM 2 MG/2 ML VIAL IV (16:52)
[2024-05-12] MEDS: BUPIVACAINE 0.25% (PF) VIAL 2 ML INJ (16:53)
[2024-05-12] MEDS: DEXAMETHASONE 10 MG/ML VIAL 20 MG INJ (16:54)
[2024-05-12] MEDS: BETAMETHASONE 30 MG/5 ML MDV 12 MG INJ (16:54)
[2024-05-12] MEDS: iopamidoL 15 ML VIAL 3 ML INJ (16:54)
--- NOTE | 2024-05-12 17:12 | P.PCN_ITS ---
Date/Time/Diagnoses Date of procedure: 05/12/24 Time of procedure: 17:12 Pre-procedure diagnosis: 1. FORAMINAL STENOSIS WITH LE SYMPTOMS Post-procedure diagnosis: same Procedure Notes Procedure: 1. FLUOROSCOPICALLY GUIDED CONTRAST CONTROLLED TRANSFORAMINAL EPIDURAL STEROID INJECTION - LEFT L4/5 Indications: Barbara is referred by Dr. Lutz for treatment of Foraminal Stenosis with Left LE Symptoms Physician: Mark Lindsey Total Fluoroscopy time (seconds): 19 Total sedation minutes: 12 Complications: none Procedure in detail & Post-procedure care: FINDINGS Foraminal Nerve Root Compression secondary to disc disease and facet hypertrophy DESCRIPTION OF PROCEDURE Following review of allergy and review of potential side effects and complications, including, but not necessarily limited to, infection, allergic reaction, local tissue breakdown, stroke, temporary or permanent nerve injury, paralysis, and possible , the patient indicated that the patient understood and agreed to proceed. An informed consent document was signed by the patient, witnessed by a nurse, and placed in the patient's chart. Additionally, other treatment options including medications, modalities, and physical therapy were reviewed with the patient. After review of previous anaesthesic history and IV conscious sedation the patient was deemed safe to proceed with today?s procedure with IV conscious sedation as ASA class II designation. Safety time-out was performed to confirm patient ID, procedure to be performed and site of procedure. IV sedation was accomplished with a combination of 2mg of Versed administered by the RN after DO order, titrated to patient comfort during the course of the procedure while the patient remained responsive to all verbal commands In the prone position following sterile prep and drape of the lumbar region, the left L4/5 posterior neuroforamen was identified fluoroscopically. The skin was anesthetized via a 25-gauge 1.5-inch needle with 1% lidocaine solution. At this point, a 25-gauge 3.5-inch spinal needle was atraumatically introduced and advanced under fluoroscopic guidance through the posterior left L4/5 neuroforamen to approximately the anterior aspect of the canal. Depth was confirmed on lateral view. Following negative aspiration, injection of approximately 1.5 cc of Isovue 200 under live fluoroscopy in the AP view confirmed excellent flow along the nerve root, into the epidural space without vascular or intrathecal uptake observed Radiological data, including multiple fluoroscopic views of the lumbosacral spine, reveal a spinal needle at the left L4/5 posterior neuroforamen. Subsequent views show flow of contrast material flowing superiorly and inferiorly along the nerve root confirming epidural flow. Subsequently, a test dose of 1.5 cc of 1% lidocaine solution was administered and patient was observed for two minutes for signs or symptoms of complications, including abdominal pain, shortness of breath, bilateral upper or lower extremity weakness, nausea and vomiting, prior to steroid injection. At this point, a total of 2cc or 10mg of dexamethasone and 6mg of betamethasone was injected without incident. The procedure tolerated the procedure well without signs or symptoms of complications prior to transfer to the recovery area continued monitoring without incident. The patient was then transferred to the recovery area where they were observed for an appropriate time after the injection. The patient reported a VAS score of 7 prior to the procedure and a post- procedure VAS of 0. POST OP INSTRUCTIONS The patient was provided a Pain Log to continue to record their response to the target-specific procedure prior to follow-up visit with their referring physician. Additionally, specific post-injection care instructions and a contact number to our office were provided if concerns arise regarding possible complications associated with the procedure are suspected.
--- NOTE | 2024-05-12 17:13 | P.PCN_ITS ---
Date/Time/Diagnoses Date of procedure: 05/12/24 Time of procedure: 17:13 Pre-procedure diagnosis: 1. FORAMINAL STENOSIS WITH LE SYMPTOMS Post-procedure diagnosis: same Procedure Notes Procedure: 1. FLUOROSCOPICALLY GUIDED CONTRAST CONTROLLED TRANSFORAMINAL EPIDURAL STEROID INJECTION - LEFT L3/4 TFESI Indications: Barbara is referred by Dr. Lutz for treatment of Foraminal Stenosis with left LE Symptoms Physician: Mark Lindsey Total Fluoroscopy time (seconds): 19 Total sedation minutes: 12 Complications: none Procedure in detail & Post-procedure care: FINDINGS Foraminal Nerve Root Compression secondary to disc disease and facet hypertrophy DESCRIPTION OF PROCEDURE Following review of allergy and review of potential side effects and complications, including, but not necessarily limited to, infection, allergic reaction, local tissue breakdown, stroke, temporary or permanent nerve injury, paralysis, and possible , the patient indicated that the patient understood and agreed to proceed. An informed consent document was signed by the patient, witnessed by a nurse, and placed in the patient's chart. Additionally, other treatment options including medications, modalities, and physical therapy were reviewed with the patient. After review of previous anaesthesic history and IV conscious sedation the patient was deemed safe to proceed with today?s procedure with IV conscious sedation as ASA class II designation. Safety time-out was performed to confirm patient ID, procedure to be performed and site of procedure. IV sedation was accomplished with a combination of 2mg of Versed was administered by the RN after DO order, titrated to patient comfort during the course of the procedure while the patient remained responsive to all verbal commands In the prone position following sterile prep and drape of the lumbar region, the left L3/4 posterior neuroforamen was identified fluoroscopically. The skin was anesthetized via a 25-gauge 1.5-inch needle with 1% lidocaine solution. At this point, a 25-gauge 3.5-inch spinal needle was atraumatically introduced and advanced under fluoroscopic guidance through the posterior left L3/4 neuroforamen to approximately the anterior aspect of the canal. Depth was confirmed on lateral view. Following negative aspiration, injection of approximately 1.5 cc of Isovue 200 under live fluoroscopy in the AP view confir med excellent flow along the nerve root, into the epidural space without vascular or intrathecal uptake observed Radiological data, including multiple fluoroscopic views of the lumbosacral spine, reveal a spinal needle at the left L3/4 posterior neuroforamen. Subsequent views show flow of contrast material flowing superiorly and inferiorly along the nerve root confirming epidural flow. Subsequently, a test dose of 1.5cc of 1% lidocaine solution was administered and patient was observed for two minutes for signs or symptoms of complications, including abdominal pain, shortness of breath, bilateral upper or lower extremity weakness, nausea and vomiting, prior to steroid injection. At this point, a total of 2cc or 10mg of dexamethasone and 6mg betamethasone was injected without incident. The patient tolerated the procedure well without signs or symptoms of complications prior to transfer to the recovery area continued monitoring without incident. The patient was then transferred to the recovery area where they were observed for an appropriate time after the injection. The patient reported a VAS score of 7 prior to the procedure and a post-procedure VAS of 0. POST OP INSTRUCTIONS The patient was provided a Pain Log to continue to record their response to the target-specific procedure prior to follow-up visit with their referring physician. Additionally, specific post-injection care instructions and a contact number to our office were provided if concerns arise regarding possible complications associated with the procedure are suspected.
== END ==
PROVIDERS: PCP Internal Medicine; Referring Provider Physical Medicine & Rehabilitation; Visit Provider Physical Medicine & Rehabilitation
DX: M48.061 Spinal stenosis, lumbar region without neurogenic claudication (principal); M51.16 Intervertebral disc disorders with radiculopathy, lumbar region; M47.26 Other spondylosis with radiculopathy, lumbar region
CPT/HCPCS: 64483; 64484; 99152; J0702; J1100; J2250; J3490

== ENCOUNTER 2024-07-19 12:13 | Outpatient (CLI) | payer MEDICARE, OTHER, SELFPAY ==
[2024-07-19] VITALS (9 sets, daily range): BP systolic 115–173; BP diastolic 56–74; PULSE 56–65; RESP 16–18; TEMP 36.5; O2SAT 98–100
--- NOTE | 2024-07-19 12:14 | DI.RAD.S_ITS ---
PROCEDURE: PAIN L/S TRANSFORAMINAL INJECT INDICATIONS: Right L4/5 and L3/4 TFESI COMPARISON: [facility], , PAIN L/S TRANSFORAMINAL INJECT, 05/12/2024, 16:54. FINDINGS/IMPRESSION: Fluoroscopic spot filming was performed to verify placement of spinal needles at the L3-4, L4-5 level(s), as labeled on the films. Appropriate location(s) of the needle tip(s) was confirmed by injection of iodinated contrast. Dictated by: Steffanie Zazueta M.D. on 07/20/2024 at 22:45 Approved by: Steffanie Zazueta M.D. on 07/20/2024 at 22:45
[2024-07-19] MEDS: MIDAZOLAM 2 MG/2 ML VIAL IV (13:33)
[2024-07-19] MEDS: BUPIVACAINE 0.25% (PF) VIAL 2 ML INJ (13:38)
[2024-07-19] MEDS: DEXAMETHASONE 10 MG/ML VIAL 20 MG INJ (13:39)
[2024-07-19] MEDS: BETAMETHASONE 30 MG/5 ML MDV 12 MG INJ (13:39)
[2024-07-19] MEDS: iopamidoL 15 ML VIAL 3 ML INJ (13:40)
[2024-07-19] MEDS: LIDOCAINE 1% 20 ML 5 ML INJ (13:41)
--- NOTE | 2024-07-19 14:00 | P.PCN_ITS ---
Date/Time/Diagnoses Date of procedure: 07/19/24 Time of procedure: 14:00 Pre-procedure diagnosis: 1. FORAMINAL STENOSIS WITH LE SYMPTOMS Post-procedure diagnosis: same Procedure Notes Procedure: 1. FLUOROSCOPICALLY GUIDED CONTRAST CONTROLLED TRANSFORAMINAL EPIDURAL STEROID INJECTION - RIGHT L4/5 TFESI Indications: Barbara is referred by Dr. Lutz for treatment of Foraminal Stenosis with Right LE Symptoms Physician: Mark Lindsey Total Fluoroscopy time (seconds): 12 Total sedation minutes: 19 Complications: none Procedure in detail & Post-procedure care: FINDINGS Foraminal Nerve Root Compression secondary to disc disease and facet hypertrophy DESCRIPTION OF PROCEDURE Following review of allergy and review of potential side effects and complications, including, but not necessarily limited to, infection, allergic reaction, local tissue breakdown, stroke, temporary or permanent nerve injury, paralysis, and possible , the patient indicated that the patient understood and agreed to proceed. An informed consent document was signed by the patient, witnessed by a nurse, and placed in the patient's chart. Additionally, other treatment options including medications, modalities, and physical therapy were reviewed with the patient. After review of previous anaesthesic history and IV conscious sedation the patient was deemed safe to proceed with today?s procedure with IV conscious sedation as ASA class II designation. Safety time-out was performed to confirm patient ID, procedure to be performed and site of procedure. IV sedation was accomplished with a combination of 2mg of Versed was administered by the RN after DO order, titrated to patient comfort during the course of the procedure while the patient remained responsive to all verbal commands In the prone position following sterile prep and drape of the lumbar region, the right L4/5 posterior neuroforamen was identified fluoroscopically. The skin was anesthetized via a 25-gauge 1.5-inch needle with 1% lidocaine solution. At this point, a 25-gauge 3.5-inch spinal needle was atraumatically introduced and advanced under fluoroscopic guidance through the posterior right L4/5 neuroforamen to approximately the anterior aspect of the canal. Depth was confirmed on lateral view. Following negative aspiration, injection of approximately 1.5cc of Isovue 200 under live fluoroscopy in the AP view confirmed excellent flow along the nerve root, into the epidural space without vascular or intrathecal uptake observed Radiological data, including multiple fluoroscopic views of the lumbosacral sp ine, reveal a spinal needle at the right L4/5 posterior neuroforamen. Subsequent views show flow of contrast material flowing superiorly and inferiorly along the nerve root confirming epidural flow. Subsequently, a test dose of 1.5 cc of 1% lidocaine solution was administered and patient was observed for two minutes for signs or symptoms of complications, including abdominal pain, shortness of breath, bilateral upper or lower extremity weakness, nausea and vomiting, prior to steroid injection. At this point, a total of 2cc or 10mg of dexamethasone and 6mg of betamethasone was injected without incident. The procedure tolerated the procedure well without signs or symptoms of complications prior to transfer to the recovery area continued monitoring without incident. The patient was then transferred to the recovery area where they were observed for an appropriate time after the injection. The patient reported a VAS score of 7 prior to the procedure and a post- procedure VAS of 0. POST OP INSTRUCTIONS The patient was provided a Pain Log to continue to record their response to the target-specific procedure prior to follow-up visit with their referring physician. Additionally, specific post-injection care instructions and a contact number to our office were provided if concerns arise regarding possible complications associated with the procedure are suspected.
--- NOTE | 2024-07-19 14:01 | P.PCN_ITS ---
Date/Time/Diagnoses Date of procedure: 07/19/24 Time of procedure: 14:01 Pre-procedure diagnosis: 1. FORAMINAL STENOSIS WITH LE SYMPTOMS Post-procedure diagnosis: same Procedure Notes Procedure: 1. FLUOROSCOPICALLY GUIDED CONTRAST CONTROLLED TRANSFORAMINAL EPIDURAL STEROID INJECTION - RIGHT L3/4 TFESI Indications: Barbara is referred by Dr. Lutz for treatment of Foraminal Stenosis with right LE Symptoms Physician: Mark Lindsey Total Fluoroscopy time (seconds): 12 Total sedation minutes: 19 Complications: none Procedure in detail & Post-procedure care: FINDINGS Foraminal Nerve Root Compression secondary to disc disease and facet hypertrophy DESCRIPTION OF PROCEDURE Following review of allergy and review of potential side effects and complications, including, but not necessarily limited to, infection, allergic reaction, local tissue breakdown, stroke, temporary or permanent nerve injury, paralysis, and possible , the patient indicated that the patient understood and agreed to proceed. An informed consent document was signed by the patient, witnessed by a nurse, and placed in the patient's chart. Additionally, other treatment options including medications, modalities, and physical therapy were reviewed with the patient. After review of previous anaesthesic history and IV conscious sedation the patient was deemed safe to proceed with today?s procedure with IV conscious sedation as ASA class II designation. Safety time-out was performed to confirm patient ID, procedure to be performed and site of procedure. IV sedation was accomplished with a combination of 2mg of Versed was administered by the RN after DO order, titrated to patient comfort during the course of the procedure while the patient remained responsive to all verbal commands In the prone position following sterile prep and drape of the lumbar region, the right L3/4 posterior neuroforamen was identified fluoroscopically. The skin was anesthetized via a 25-gauge 1.5-inch needle with 1% lidocaine solution. At this point, a 25-gauge 3.5-inch spinal needle was atraumatically introduced and advanced under fluoroscopic guidance through the posterior right L3/4 neuroforamen to approximately the anterior aspect of the canal. Depth was confirmed on lateral view. Following negative aspiration, injection of approximately 1.5 cc of Isovue 200 under live fluoroscopy in the AP view c onfirmed excellent flow along the nerve root, into the epidural space without vascular or intrathecal uptake observed Radiological data, including multiple fluoroscopic views of the lumbosacral spi ne, reveal a spinal needle at the right L3/4 posterior neuroforamen. Subsequent views show flow of contrast material flowing superiorly and inferiorly along the nerve root confirming epidural flow. Subsequently, a test dose of 1.5 cc of 1% lidocaine solution was administered and patient was observed for two minutes for signs or symptoms of complications, including abdominal pain, shortness of breath, bilateral upper or lower extremity weakness, nausea and vomiting, prior to steroid injection. At this point, a total of 2cc or 10mg of dexamethasone and 6mg of betamethasone was injected without incident. The patient tolerated the procedure well without signs or symptoms of complications prior to transfer to the recovery area continued monitoring without incident. The patient was then transferred to the recovery area where they were observed for an appropriate time after the injection. The patient reported a VAS score of 7 prior to the procedure and a post-procedure VAS of 0. POST OP INSTRUCTIONS The patient was provided a Pain Log to continue to record their response to the target-specific procedure prior to follow-up visit with their referring physician. Additionally, specific post-injection care instructions and a contact number to our office were provided if concerns arise regarding possible complications associated with the procedure are suspected.
== END 2024-07-19 14:09 | disposition home or self-care (01) ==
PROVIDERS: PCP Internal Medicine; Referring Provider Physical Medicine & Rehabilitation; Visit Provider Physical Medicine & Rehabilitation
DX: M48.061 Spinal stenosis, lumbar region without neurogenic claudication (principal); M51.16 Intervertebral disc disorders with radiculopathy, lumbar region; M47.26 Other spondylosis with radiculopathy, lumbar region
CPT/HCPCS: 64483; 64484; 99152; J0702; J1100; J2250; J3490

== ENCOUNTER 2024-07-30 08:33 | Emergency (ER) | payer MEDICARE, OTHER, SELFPAY ==
[2024-07-30] VITALS (9 sets, daily range): BP systolic 138–156; BP diastolic 65–97; PULSE 61–70; RESP 18; TEMP 36.7; O2SAT 95–98; BMI 35.9
--- NOTE | 2024-07-30 08:35 | ED.GENADULT ---
HPI - General Adult General Chief complaint: Extremity Injury, Lower Stated complaint: 4ft Fall t-8, R Foot Injury/Pain Time Seen by Provider: 07/30/24 08:35 History of Present Illness HPI narrative: 69-year-old woman with a history of paroxysmal atrial fibrillation anticoagulated on warfarin, prior TIA, hypertension, diabetes, hyperlipidemia chronic pain management on 40-60 mg of oxycodone and occasional ibuprofen daily stepped out of an elevator and fell 4 ft landing on her heels, this occurred 8 days ago. The elevator is in their home. She was initially evaluated at [facility] with x-rays done of the foot and ankle that did not reveal any fractures or other bony injury, she does have some bruising that is healing appropriately over both lower extremities. She is still unable to bear weight on the right foot. She had a home walking boot that she has been using. She comes in for further evaluation and has no other musculoskeletal complaints today Related Data Home Medications Medication Instructions Recorded Confirmed levothyroxine 125 mcg tablet 125 mcg PO DAILY 10/07/21 05/25/24 (Synthroid) multivitamin (Daily Multi-Vitamin 1 tab PO DAILY 10/07/21 05/25/24 tablet) aripiprazole 10 mg tablet 30 mg PO DAILY 12/25/21 05/25/24 hydrocodone 10 mg-acetaminophen 1 tab PO DAILY 12/25/21 05/25/24 325 mg tablet losartan 50 mg tablet 50 mg PO DAILY 12/25/21 05/25/24 metoprolol succinate 50 mg tab PO 12/25/21 05/25/24 tablet,extended release 24 hr sumatriptan succinate 50 mg tablet ea PO 12/25/21 05/25/24 metformin 500 mg tablet,extended 500 mg PO DAILY 04/30/22 05/25/24 release 24 hr aspirin 81 mg tablet,delayed 81 mg PO DAILY 08/20/22 05/25/24 release atorvastatin 80 mg tablet 80 mg PO BEDTIME 08/20/22 05/25/24 clopidogrel 75 mg tablet 75 mg PO DAILY 08/20/22 05/25/24 empagliflozin 25 mg tablet 25 mg PO DAILY 08/20/22 05/25/24 (Jardiance) sitagliptin phosphate 100 mg 100 mg PO DAILY 08/20/22 05/25/24 tablet (Januvia) albuterol sulfate 90 mcg/actuation 2 puff inhalation .PRN 11/26/22 05/25/24 aerosol inhaler (ProAir HFA) amlodipine 2.5 mg tablet 2.5 mg PO DAILY 11/26/22 05/25/24 hydrochlorothiazide 25 mg tablet 25 mg PO DAILY 11/26/22 05/25/24 ondansetron HCl 4 mg tablet 4 mg PO PRN nausea and vomiting 11/26/22 05/25/24 oxycodone 10 mg tablet,crush tab PO 11/26/22 05/25/24 resistant,extended release 12 hr diclofenac sodium 1 % topical gel 2 g topical QID 02/25/23 05/25/24 rizatriptan 5 mg disintegrating 5 mg PO ONCE 02/25/23 05/25/24 tablet naloxone 4 mg/actuation nasal spray spray intranasal 11/23/23 05/25/24 duloxetine 60 mg capsule,delayed 60 mg PO DAILY 02/10/24 05/25/24 release (Cymbalta) Previous Rx's Medication Instructions Recorded pramipexole 0.5 mg tablet (Mirapex) 0.5 mg PO BEDTIME #30 tabs 06/10/23 gabapentin 600 mg tablet 600 mg PO .COMPLEX #270 tabs 02/10/24 cyclobenzaprine 5 mg tablet 10 mg (2 x 5 mg) PO BEDTIME #60 05/06/24 tabs alprazolam 0.5 mg tablet (Xanax) 0.5 mg PO .COMPLEX PRN Pre MRI or 07/18/24 Procedure #5 tabs Allergies Allergy/AdvReac Type Severity Reaction Status Date / Time erythromycin base Allergy Severe Swelling Verified 05/25/24 13:09 of Lip/Tongue/Throat Penicillins Allergy Severe Anaphylaxis Verified 05/25/24 13:09 phenytoin [From Dilantin] Allergy Severe Rash Verified 05/25/24 13:09 tetracycline Allergy Severe Anaphylaxis Verified 05/25/24 13:09 zoledronic acid Allergy Severe Anaphylaxis Verified 05/25/24 13:09 salicylic acid Allergy Intermediate Rash Verified 05/25/24 13:09 Review of Systems Review of Systems Narrative: Pertinent positive and negative findings as per HPI Patient History Medical History Cervical radiculopathy Atrial fibrillation TIA (transient ischemic attack) Facet arthropathy, lumbar Scoliosis Depression Hypothyroidism Diabetes Post-traumatic syrinx Lumbosacral radiculopathy at L4 Surgical History History of fusion of cervical spine History of cholecystectomy H/O neck surgery Family History Father Cancer Mother Heart disease Sister Heart disease Social History Smoking Status: Former smoker Smoking Status: Former smoker Exam Initial Vital Signs Initial Vital Signs: Vital Signs Pulse Rate 70 07/30/24 08:39 Pulse Oximetry 95 07/30/24 08:39 General: Healthy appearing, in no acute distress. Able to give a complete and coherent history. Well-nourished well-developed Respiratory: Full and symmetrical air movement Skin: Well-perfused, multiple healing bruises over the legs Neurologic: Grossly neurologically intact with no obvious asymmetries or abnormalities Extremities: No spinal tenderness, no pain with excellent range of motion external rotation of the hip and knee on the right side. No ankle tenderness, calcaneal pain with compression. Deeper bruising to the dorsum of the foot. She is neurovascularly intact Psych: Cooperative, appropriate insight and affect Course Orders Ordered: ED Orders 07/30/24 08:43 CT LE RT wo con Stat Vital Signs Vital signs: Vital Signs - 8 hr 07/30/24 08:39 07/30/24 08:40 07/30/24 08:40 Temperature Pulse Rate 70 68 Pulse Rate [Right Dorsalis Pedis] Respiratory Rate Blood Pressure 138/65 Pulse Oximetry 95 97 Oxygen Delivery Method 07/30/24 08:47 07/30/24 08:56 07/30/24 08:59 Temperature 98.1 F Pulse Rate 67 66 Pulse Rate [Right Dorsalis Pedis] 70 Respiratory Rate 18 Blood Pressure 138/65 Pulse Oximetry 97 97 Oxygen Delivery Method Room Air 07/30/24 08:59 07/30/24 09:00 07/30/24 09:00 Temperature Pulse Rate 68 Pulse Rate [Right Dorsalis Pedis] Respiratory Rate 18 Blood Pressure 141/90 H 156/97 H Pulse Oximetry 98 Oxygen Delivery Method Medical Decision Making Imaging Data CT ankle and foot: Radiologist's Impression: PROCEDURE: CT LE RT WO CON INDICATIONS: 4 ft fall landing on heel 8 days ago, unable to bear wt TECHNIQUE: Noncontrast 1-1.5 mm axial sections acquired from above the tibiotalar joint to the bottom of the calcaneus, with coronal and sagittal reformats. COMPARISON: None. FINDINGS: Image quality: Diagnostic Bones: Tibiotalar degenerative changes and osteophytes. The ankle mortise appears intact. Scattered chronic appearing bone fragments are seen around the tibiotalar joint. Small bone fragment is seen anterior to the tibial plafond (4/38). Small bone fragment seen at the medial gutter (3/65) Plantar and calcaneal Achilles insertional enthesopathy. There is no dislocation. No acute displaced fracture elsewhere Scattered midfoot and MTP low-grade degenerative changes also present. Soft tissues: There is scattered soft tissue swelling. No drainable fluid collection IMPRESSION: There is a small age-indeterminate bone fragment adjacent to the anterior tibial plafond that may represent an avulsion fracture. Another age-indeterminate bone fragment is seen in the medial gutter. Correlate with tenderness (4/38, 3/65). Other periarticular bone fragments are likely chronic. Background tibiotalar and midfoot degenerative changes. Plantar and calcaneal enthesopathy. Given inability to bear weight, additional soft tissue/ligamentous injuries are possible, consider MRI evaluation if needed. Dictated by: Gerardo Alaniz M.D. on 07/30/2024 at 9:1 MDM Narrative Medical decision making narrative: CC: 4 ft fall landing on the right foot 8 days ago still unable to bear weight Complicating co-morbidities: Anticoagulated on warfarin, chronic pain with chronic oxycodone use Data collected from: patient Medical records reviewed: Notes from Dr. Lindsey with pain management visits are reviewed Differential considered: Calcaneal fracture, other foot fracture, deep foot bruising Exam documented above, pertinent findings include: Some healing bruises over the thighs bilaterally. Right foot is in a compression sock and a walking boot that is easily removed. Some ecchymosis over the plantar surface of the foot and tenderness with compression of the heel and the midfoot. She is neurovascularly intact Imaging studies independently reviewed: CT of the right foot and ankle does not show obvious fracture Discussion: 69-year-old woman with a forefoot fall 8 days ago landing on her feet. Increasing pain and unable to bear weight on the right foot despite negative x-rays days ago. CT scan confirms no bony injury. She still does have quite a bit of bruising. Talked about continued use of her walking boot for stability of pain control. Discussed contusions, bone fractures as well as ligamentous injuries. If she is still feeling significant pain or any ankle or foot instability she does need to follow up with the primary care physician. Physical therapy maybe appropriate and she may still need MRI testing to look further at soft tissues of the area. There was no indication for hospitalization or additional imaging at this time and she is safe for discharge Discharge Plan Departure Patient Disposition: Home Clinical Impression: Fall Qualifiers: Encounter type: initial encounter Qualified Code(s): W19.XXXA - Unspecified fall, initial encounter Contusion of foot Qualifiers: Encounter type: subsequent encounter Laterality: right Qualified Code(s): S90.31XD - Contusion of right foot, subsequent encounter Instructions: DI for Foot Pain Activity Restrictions/Additional Instructions: Thank you for coming in today You certainly got emelia with your 4 ft fall having only obvious bruising and no broken bones. Sometimes foot fractures can be hard to see initially, we did a CT scan today and still showed no fractures or bony changes. You clearly do have some bruising that is working its way to the surface as would be expected. You clearly have at the very minimum bruised the foot and likely the heel bone. This may hurt for up to 6 weeks. If you are continuing to have severe pain or any instability, it feels like the foot or ankle is going to give out when you are walking, I would recommend follow up with your primary care physician. There may still be ligamentous injury and you may benefit from future physical therapy for Re strengthening and perhaps even MRI testing to see if there other injuries that do need further treatment I would recommend continuing to use the walking boot as it is providing stability and comfort. Please continue with your current pain management plan If you find that you are getting worse or develop any new symptoms, please feel free to return to the emergency department for further evaluation. Prescriptions: No Action cyclobenzaprine 5 mg tablet 10 mg PO BEDTIME Qty: 60 0RF Rx Instructions: TAKE 1 AT BEDTIME FOR 3 DAYS. THIS MEDICATION CAN BE SEDATING. THEN IF NOT HELPING INCREASE TO 2-5MG AT BEDTIME. alprazolam [Xanax] 0.5 mg tablet 0.5 mg PO .COMPLEX MDD 2 PRN (Reason: Pre MRI or Procedure) Qty: 5 0RF Rx Instructions: 0.5 mg orally PRN; oxycodone 10 mg tablet,oral only,ext.rel.12 hr PO ondansetron HCl 4 mg tablet 4 mg PO PRN (Reason: nausea and vomiting) amlodipine 2.5 mg tablet 2.5 mg PO DAILY hydrochlorothiazide 25 mg tablet 25 mg PO DAILY albuterol sulfate [ProAir HFA] 90 mcg/actuation HFA aerosol inhaler 2 puff inhalation .PRN naloxone 4 mg/actuation spray,non-aerosol intranasal levothyroxine [Synthroid] 125 mcg tablet 125 mcg PO DAILY multivitamin [Daily Multi-Vitamin] Tablet 1 tab PO DAILY metoprolol succinate 50 mg tablet extended release 24 hr PO losartan 50 mg tablet 50 mg PO DAILY hydrocodone-acetaminophen 10-325 mg tablet 1 tab PO DAILY aripiprazole 10 mg tablet 30 mg PO DAILY sumatriptan succinate 50 mg tablet PO Patient Comments: take 1 tablet by mouth if needed AT ONSET OF HEADACHE may repeat in 2 hours IF headache PERSIST metformin 500 mg tablet extended release 24 hr 500 mg PO DAILY clopidogrel 75 mg tablet 75 mg PO DAILY aspirin 81 mg tablet,delayed release (DR/EC) 81 mg PO DAILY atorvastatin 80 mg tablet 80 mg PO BEDTIME Patient Comments: take 1 tablet by mouth once daily Jardiance 25 mg tablet 25 mg PO DAILY Januvia 100 mg tablet 100 mg PO DAILY rizatriptan 5 mg tablet,disintegrating 5 mg PO ONCE diclofenac sodium 1 % gel 2 g topical QID pramipexole [Mirapex] 0.5 mg tablet 0.5 mg PO BEDTIME Qty: 30 1RF gabapentin 600 mg tablet 600 mg PO .COMPLEX Qty: 270 2RF Rx Instructions: 600 mg PO 1-2 PO Tid to begin at HS and titrate to nerve pain relief; duloxetine [Cymbalta] 60 mg capsule,delayed release(DR/EC) 60 mg PO DAILY Referrals: Stuart Lutz MD [Primary Care Provider] - Stand Alone Forms: Patient Portal/API/Survey
--- NOTE | 2024-07-30 08:43 | DI.CT.S_ITS ---
PROCEDURE: CT LE RT WO CON INDICATIONS: 4 ft fall landing on heel 8 days ago, unable to bear wt TECHNIQUE: Noncontrast 1-1.5 mm axial sections acquired from above the tibiotalar joint to the bottom of the calcaneus, with coronal and sagittal reformats. COMPARISON: None. FINDINGS: Image quality: Diagnostic Bones: Tibiotalar degenerative changes and osteophytes. The ankle mortise appears intact. Scattered chronic appearing bone fragments are seen around the tibiotalar joint. Small bone fragment is seen anterior to the tibial plafond (4/38). Small bone fragment seen at the medial gutter (3/65) Plantar and calcaneal Achilles insertional enthesopathy. There is no dislocation. No acute displaced fracture elsewhere Scattered midfoot and MTP low-grade degenerative changes also present. Soft tissues: There is scattered soft tissue swelling. No drainable fluid collection IMPRESSION: There is a small age-indeterminate bone fragment adjacent to the anterior tibial plafond that may represent an avulsion fracture. Another age-indeterminate bone fragment is seen in the medial gutter. Correlate with tenderness (4/38, 3/65). Other periarticular bone fragments are likely chronic. Background tibiotalar and midfoot degenerative changes. Plantar and calcaneal enthesopathy. Given inability to bear weight, additional soft tissue/ligamentous injuries are possible, consider MRI evaluation if needed. Dictated by: Gerardo Alaniz M.D. on 07/30/2024 at 9:15 Approved by: Gerardo Alaniz M.D. on 07/30/2024 at 9:21
== END 2024-07-30 10:05 | disposition home or self-care (01) ==
PROVIDERS: Emergency Provider Emergency Medicine; PCP Internal Medicine
DX: S90.31XD Contusion of right foot, subsequent encounter (principal); W17.89XD Other fall from one level to another, subsequent encounter
CPT/HCPCS: 73700; 99281; 99284

== ENCOUNTER 2024-09-15 06:53 | Outpatient (CLI) | payer MEDICARE, OTHER, SELFPAY ==
[2024-09-15] VITALS (8 sets, daily range): BP systolic 100–132; BP diastolic 50–71; PULSE 60–71; RESP 16–18; TEMP 36.1; O2SAT 96–99
[2024-09-15] MEDS: MIDAZOLAM 2 MG/2 ML VIAL IV (08:25)
[2024-09-15] MEDS: DEXAMETHASONE 10 MG/ML VIAL INJ (08:39)
[2024-09-15] MEDS: BUPIVACAINE 0.25% (PF) VIAL 2 ML INJ (08:39)
[2024-09-15] MEDS: BETAMETHASONE 30 MG/5 ML MDV 12 MG INJ (08:40)
[2024-09-15] MEDS: iopamidoL 15 ML VIAL 3 ML INJ (08:40)
--- NOTE | 2024-09-15 08:48 | P.PCN_ITS ---
Date/Time/Diagnoses Date of procedure: 09/15/24 Time of procedure: 08:48 Pre-procedure diagnosis: 1. FORAMINAL STENOSIS WITH LE SYMPTOMS Post-procedure diagnosis: same Procedure Notes Procedure: 1. FLUOROSCOPICALLY GUIDED CONTRAST CONTROLLED TRANSFORAMINAL EPIDURAL STEROID INJECTION - LEFT L4/5 Indications: Barbara is referred by Dr. Lutz for treatment of Foraminal Stenosis with Left LE Symptoms Physician: Mark Lindsey Total Fluoroscopy time (seconds): 19 Total sedation minutes: 20 Complications: none Procedure in detail & Post-procedure care: FINDINGS Foraminal Nerve Root Compression secondary to disc disease and facet hypertrophy DESCRIPTION OF PROCEDURE Following review of allergy and review of potential side effects and complications, including, but not necessarily limited to, infection, allergic reaction, local tissue breakdown, stroke, temporary or permanent nerve injury, paralysis, and possible , the patient indicated that the patient understood and agreed to proceed. An informed consent document was signed by the patient, witnessed by a nurse, and placed in the patient's chart. Additionally, other treatment options including medications, modalities, and physical therapy were reviewed with the patient. After review of previous anaesthesic history and IV conscious sedation the patient was deemed safe to proceed with today?s procedure with IV conscious sedation as ASA class II designation. Safety time-out was performed to confirm patient ID, procedure to be performed and site of procedure. IV sedation was accomplished with a combination of 2mg of Versed administered by the RN after DO order, titrated to patient comfort during the course of the procedure while the patient remained responsive to all verbal commands In the prone position following sterile prep and drape of the lumbar region, the left L4/5 posterior neuroforamen was identified fluoroscopically. The skin was anesthetized via a 25-gauge 1.5-inch needle with 1% lidocaine solution. At this point, a 25-gauge 3.5-inch spinal needle was atraumatically introduced and advanced under fluoroscopic guidance through the posterior left L4/5 neuroforamen to approximately the anterior aspect of the canal. Depth was confirmed on lateral view. Following negative aspiration, injection of approximately 1.5 cc of Isovue 200 under live fluoroscopy in the AP view confirmed excellent flow along the nerve root, into the epidural space without vascular or intrathecal uptake observed Radiological data, including multiple fluoroscopic views of the lumbosacral spine, reveal a spinal needle at the left L4/5 posterior neuroforamen. Subsequent views show flow of contrast material flowing superiorly and inferiorly along the nerve root confirming epidural flow. Subsequently, a test dose of 1.5 cc of 1% lidocaine solution was administered and patient was observed for two minutes for signs or symptoms of complications, including abdominal pain, shortness of breath, bilateral upper or lower extremity weakness, nausea and vomiting, prior to steroid injection. At this point, a total of 3cc or 10mg of dexamethasone and 12mg of betamethasone was injected without incident. The procedure tolerated the procedure well without signs or symptoms of complications prior to transfer to the recovery area continued monitoring without incident. The patient was then transferred to the recovery area where they were observed for an appropriate time after the injection. The patient reported a VAS score of 7 prior to the procedure and a post- procedure VAS of 1. POST OP INSTRUCTIONS The patient was provided a Pain Log to continue to record their response to the target-specific procedure prior to follow-up visit with their referring physician. Additionally, specific post-injection care instructions and a contact number to our office were provided if concerns arise regarding possible complications associated with the procedure are suspected.
== END 2024-09-15 09:03 | disposition home or self-care (01) ==
PROVIDERS: PCP Internal Medicine; Referring Provider Physical Medicine & Rehabilitation; Visit Provider Physical Medicine & Rehabilitation
DX: M48.061 Spinal stenosis, lumbar region without neurogenic claudication (principal); M51.16 Intervertebral disc disorders with radiculopathy, lumbar region; M47.26 Other spondylosis with radiculopathy, lumbar region
CPT/HCPCS: 64483; 99152; J0702; J1100; J2250; J3490

== ENCOUNTER 2024-11-29 06:29 | Outpatient (CLI) | payer MEDICARE, OTHER, SELFPAY ==
[2024-11-29] VITALS (10 sets, daily range): BP systolic 147–180; BP diastolic 66–81; PULSE 65–78; RESP 14–16; TEMP 36.1; O2SAT 96–100
[2024-11-29] MEDS: MIDAZOLAM 2 MG/2 ML VIAL IV (08:40)
[2024-11-29] MEDS: BUPIVACAINE 0.25% (PF) VIAL 2 ML INJ (08:48)
[2024-11-29] MEDS: DEXAMETHASONE 10 MG/ML VIAL INJ (08:48)
[2024-11-29] MEDS: iopamidoL 15 ML VIAL 3 ML INJ (08:49)
[2024-11-29] MEDS: BETAMETHASONE 30 MG/5 ML MDV 12 MG INJ (08:49)
--- NOTE | 2024-11-29 09:09 | P.PCN_ITS ---
Date/Time/Diagnoses Date of procedure: 11/29/24 Time of procedure: 09:09 Pre-procedure diagnosis: 1. FORAMINAL STENOSIS WITH LE SYMPTOMS Post-procedure diagnosis: same Procedure Notes Procedure: 1. FLUOROSCOPICALLY GUIDED CONTRAST CONTROLLED TRANSFORAMINAL EPIDURAL STEROID INJECTION - LEFT L4/5 Indications: Barbara is referred by Dr. Lutz for treatment of Foraminal Stenosis with Left LE Symptoms Physician: Mark Lindsey Total Fluoroscopy time (seconds): 12 Total sedation minutes: 23 Complications: none Procedure in detail & Post-procedure care: FINDINGS Foraminal Nerve Root Compression secondary to disc disease and facet hypertrophy DESCRIPTION OF PROCEDURE Following review of allergy and review of potential side effects and complications, including, but not necessarily limited to, infection, allergic reaction, local tissue breakdown, stroke, temporary or permanent nerve injury, paralysis, and possible , the patient indicated that the patient understood and agreed to proceed. An informed consent document was signed by the patient, witnessed by a nurse, and placed in the patient's chart. Additionally, other treatment options including medications, modalities, and physical therapy were reviewed with the patient. After review of previous anaesthesic history and IV conscious sedation the patient was deemed safe to proceed with today?s procedure with IV conscious sedation as ASA class II designation. Safety time-out was performed to confirm patient ID, procedure to be performed and site of procedure. IV sedation was accomplished with a combination of 2mg of Versed administered by the RN after DO order, titrated to patient comfort during the course of the procedure while the patient remained responsive to all verbal commands In the prone position following sterile prep and drape of the lumbar region, the left L4/5 posterior neuroforamen was identified fluoroscopically. The skin was anesthetized via a 25-gauge 1.5-inch needle with 1% lidocaine solution. At this point, a 25-gauge 3.5-inch spinal needle was atraumatically introduced and advanced under fluoroscopic guidance through the posterior left L4/5 neuroforamen to approximately the anterior aspect of the canal. Depth was confirmed on lateral view. Following negative aspiration, injection of approximately 1.5 cc of Isovue 200 under live fluoroscopy in the AP view confirmed excellent flow along the nerve root, into the epidural space without vascular or intrathecal uptake observed Radiological data, including multiple fluoroscopic views of the lumbosacral spine, reveal a spinal needle at the left L4/5 posterior neuroforamen. Subsequent views show flow of contrast material flowing superiorly and inferiorly along the nerve root confirming epidural flow. Subsequently, a test dose of 1.5 cc of 1% lidocaine solution was administered and patient was observed for two minutes for signs or symptoms of complications, including abdominal pain, shortness of breath, bilateral upper or lower extremity weakness, nausea and vomiting, prior to steroid injection. At this point, a total of 3cc or 10mg of dexamethasone and 12mg of betamethasone was injected without incident. The procedure tolerated the procedure well without signs or symptoms of complications prior to transfer to the recovery area continued monitoring without incident. The patient was then transferred to the recovery area where they were observed for an appropriate time after the injection. The patient reported a VAS score of 7 prior to the procedure and a post- procedure VAS of 0. POST OP INSTRUCTIONS The patient was provided a Pain Log to continue to record their response to the target-specific procedure prior to follow-up visit with their referring physician. Additionally, specific post-injection care instructions and a contact number to our office were provided if concerns arise regarding possible complications associated with the procedure are suspected.
== END 2024-11-29 09:24 | disposition home or self-care (01) ==
PROVIDERS: PCP Internal Medicine; Referring Provider Physical Medicine & Rehabilitation; Visit Provider Physical Medicine & Rehabilitation
DX: M47.816 Spondylosis without myelopathy or radiculopathy, lumbar region (principal); M51.16 Intervertebral disc disorders with radiculopathy, lumbar region
CPT/HCPCS: 64483; 99152; 99153; J0702; J1100; J2250; J3490

== ENCOUNTER → 2025-03-29 10:05 | Outpatient (CLI) | payer MEDICARE, OTHER, SELFPAY ==
--- NOTE | 2025-03-29 10:06 | DI.RAD.S_ITS ---
PROCEDURE: XR KNEE RT 3V INDICATIONS: Knee DJD TECHNIQUE: 3 views of the knee were acquired. COMPARISON: None. FINDINGS: Bones: There are no osseous abnormalities. Joints: Moderate patellofemoral tibiofemoral degeneration. Small suprapatellar effusion Soft tissues: Normal IMPRESSION: Moderate degeneration small suprapatellar effusion Dictated by: Radhames Smith M.D. on 03/29/2025 at 12:41 Approved by: Radhames Smith M.D. on 03/29/2025 at 12:41
--- NOTE | 2025-03-29 10:06 | DI.RAD.S_ITS ---
PROCEDURE: XR KNEE LT 3V INDICATIONS: Knee DJD TECHNIQUE: 3 views of the knee were acquired. COMPARISON: None. FINDINGS: Bones: There are no osseous abnormalities. Joints: Moderate patellofemoral and moderate tibiofemoral degeneration small suprapatellar effusion noted. There is a 5 mm loose body in the medial aspect of the patellofemoral joint on sunrise view.. Soft tissues: Normal IMPRESSION: Degeneration. small suprapatellar effusion Dictated by: Radhames Smith M.D. on 03/29/2025 at 12:41 Approved by: Radhames Smith M.D. on 03/29/2025 at 12:42
== END ==
PROVIDERS: PCP Internal Medicine; Referring Provider Physical Medicine & Rehabilitation; Visit Provider Physical Medicine & Rehabilitation
DX: M17.0 Bilateral primary osteoarthritis of knee (principal); M25.462 Effusion, left knee; M25.461 Effusion, right knee; M47.816 Spondylosis without myelopathy or radiculopathy, lumbar region; Z68.34 Body mass index [BMI] 34.0-34.9, adult; M54.12 Radiculopathy, cervical region; I48.91 Unspecified atrial fibrillation; M54.17 Radiculopathy, lumbosacral region; G95.0 Syringomyelia and syringobulbia; M41.26 Other idiopathic scoliosis, lumbar region
CPT/HCPCS: 73562; 99214